=== PATIENT | female | born 1955 | race Caucasian/White ===

== ENCOUNTER 2018-02-25 11:39 | Inpatient (IN) | payer OTHER ==
[2018-02-25] MEDS ORDERED: morphine CARPU-JECT 4 MG/1 ML DISP.SYRIN IVPUSH ONE ×3 (12:01→16:52)
--- NOTE | 2018-02-25 12:13 | PDOC ---
History of Present Illness - History of Present Illness Initial Comments: Patient is a 62 F, with PMHx of anxiety, HLD, hypothyroidism, breast cancer (17 years ago) s/p right lumpectomy, osteoporosis, hysterectomy, Kyphoplasty T9-T10 fracture ( 2 weeks ago), who presents with back pain. Patient states that she has always had intermittent back pain, which exacerbated after she lifted her granddaughter one day. She states that 2 weeks ago she had Kyphoplasty on T9 and T10 fractures. She normally ambulates with a walker but this morning she was unable to get out of bed due to her back pain. She is scheduled for an MRI on Tuesday but she was old to come to the ED if she experiences severe pain. She sees a pain management doctor who has given her injections. She denies fever, chills, nausea, vomiting, Surgical Hx: Kyphoplasty ( 2 weeks ago) breast cancer (17 years ago) s/p right lumpectomy, hysterectomy Pain Management: Laz Win [phone] PCP: Dr. Gonsales ([place]) 02/25/18 12:35 <Roxi Aquino - Last Filed: 02/25/18 16:55> - General History Source: Patient, Family Exam Limitations: No Limitations <Harvinder Condon - Last Filed: 02/25/18 18:08> - General Chief Complaint: Back Pain Stated Complaint: BACK PAIN Time Seen by Provider: 02/25/18 11:43 Past History <Roxi Aquino - Last Filed: 02/25/18 16:55> <Harvinder Condon - Last Filed: 02/25/18 18:08> - Past Medical History Allergies/Adverse Reactions: Allergies Allergy/AdvReac Type Severity Reaction Status Date / Time fluconazole [From Diflucan] Allergy Verified 02/25/18 12:45 prochlorperazine Allergy Verified 02/25/18 12:45 [From Compazine] Home Medications: Ambulatory Orders Bupropion HCl [Wellbutrin Sr] 150 mg PO DAILY 02/25/18 Cyclobenzaprine HCl [Flexeril 10 mg] 10 mg PO BID PRN 02/25/18 Lorazepam [Ativan] 1 mg PO TID 02/25/18 Rosuvastatin Calcium [Crestor] 5 mg PO HS 02/25/18 Thyroid,Pork [[place] Thyroid] 30 mg PO DAILY 02/25/18 Tramadol HCl 50 mg PO PRN PRN 02/25/18 Review of Systems - Review of Systems Comments:: GENERAL/CONSTITUTIONAL: No fever or chills. No weakness. HEAD, EYES, EARS, NOSE AND THROAT: No change in vision. No ear pain or discharge. No sore throat. CARDIOVASCULAR: No chest pain or shortness of breath. RESPIRATORY: No cough, wheezing, or hemoptysis. GASTROINTESTINAL: No nausea, vomiting, diarrhea or constipation. GENITOURINARY: No dysuria, frequency, or change in urination. MUSCULOSKELETAL: + right lower back pain. No neck pain. SKIN: No rash NEUROLOGIC: No headache, vertigo, loss of consciousness, or change in strength/ sensation. ENDOCRINE: No increased thirst. No abnormal weight change. HEMATOLOGIC/LYMPHATIC: No anemia, easy bleeding, or history of blood clots. ALLERGIC/IMMUNOLOGIC: No hives or skin allergy. <Roxi Aquino - Last Filed: 02/25/18 16:55> Heart Score/ECG Review #1 ECG reviewed & interpreted by me at: 13:00 02/25/18 16:19 NSR 100, nonspecific T wave abnormality, no MARY KAY/STD, QTC 464 msec <Harvinder Condon - Last Filed: 02/25/18 18:08> ED Treatment Course - LABORATORY CBC & Chemistry Diagram: 02/25/18 12:22 02/25/18 11:59 - Additional Consults Time Called: 16:55 (Left a message for Dr. Garcia (pain management) ) <Roxi Aquino - Last Filed: 02/25/18 16:55> - LABORATORY CBC & Chemistry Diagram: 02/25/18 12:22 02/25/18 11:59 - RADIOLOGY Radiology Studies Ordered: Category Date Time Status LUMBAR SPINE CT W/O CONTRAST [CT] Stat CT Scan 02/25/18 11:[address] W/O CONTRAST [CT] Stat CT Scan 02/25/18 11:59 Ordered <Harvinder Condon - Last Filed: 02/25/18 18:08> Medical Decision Making - Medical Decision Making 02/25/18 12:21 A portion of this note was documented by scribe services under my direction. I have reviewed the details of the note, within reason, and agree with the documentation with the following case summary and management plan written by me. Patient treated in the ED. Nursing notes are reviewed and incorporated into the medical decision-making. Vital signs reviewed. Peripheral IV access obtained by the nurse, laboratory studies are drawn and sent, reviewed and interpreted by myself. 62-year-old female with history of hyperlipidemia, hypothyroidism presents with back pain. Approximately 2 weeks ago, the patient had a kyphoplasty performed for levels reportedly T9-T10. She subsequently was discharged and reportedly with no competitions. Has been performing physical therapy with the assistance of walker. Does not recall any increased physical exertion or injury, this morning woke up with severe lower back pain. Denies any urinary or bowel incontinence or retention. Denies any numbness or weakness in the lower extremity. States that she's been unable to get up secondary to pain. Came in by EMS for evaluation. Denies fevers, chills. Kyphoplasty was performed by Dr. Garcia. We'll obtain a CAT scan of the spine including the thoracic and lumbar region to evaluate for postoperative changes. We'll and give pain control and consult the patient's surgeon in regards for further disposition. 02/25/18 17:41 CT scan shows T12 vertebral body compression fracture which is age indeterminate , prior T10, T11 kyphoplasty, large posterior disc osteophyte complex at T11- T12 causing mild to moderate spinal stenosis. CBC, BMP 02/25/18 12:22 02/25/18 11:59 CMP Sodium 141 mmol/L (136-145) 02/25/18 11:59 Potassium 3.6 mmol/L (3.5-5.1) 02/25/18 11:59 Chloride 107 mmol/L (98-107) 02/25/18 11:59 Carbon Dioxide 28 mmol/L (21-32) 02/25/18 11:59 Anion Gap 6 (8-16) L 02/25/18 11:59 BUN 10 mg/dL (7-18) 02/25/18 11:59 Creatinine 0.6 mg/dL (0.55-1.02) 02/25/18 11:59 Creat Clearance w eGFR > 60 (>60) 02/25/18 11:59 Random Glucose 72 mg/dL (74-106) L 02/25/18 11:59 Calcium 8.6 mg/dL (8.5-10.1) 02/25/18 11:59 Total Bilirubin 0.7 mg/dL (0.2-1.0) 02/25/18 11:59 AST 25 U/L (15-37) 02/25/18 11:59 ALT 35 U/L (12-78) 02/25/18 11:59 Alkaline Phosphatase 224 U/L (45-117) H 02/25/18 11:59 Total Protein 6.4 g/dl (6.4-8.2) 02/25/18 11:59 Albumin 3.3 g/dl (3.4-5.0) L 02/25/18 11:59 02/25/18 18:07 Case discussed with [facility] hospitalist. Admit to med/surg obs. Case discussed in detail with admitting physician including history, physical exam and ancillary studies. Admitting physician has assumed care for the patient, will follow all pending diagnostics and will complete the evaluation and treatment. <Harvinder Condon - Last Filed: 02/25/18 18:08> *DC/Admit/Observation/Transfer <Roxi Aquino - Last Filed: 02/25/18 16:55> - Discharge Dispostion Decision to Admit order: Yes <Harvinder Condon - Last Filed: 02/25/18 18:08> Diagnosis at time of Disposition: Back pain Qualifiers: Back pain location: thoracic back pain Chronicity: unspecified Back pain laterality: unspecified Qualified Code(s): M54.6 - Pain in thoracic spine - Discharge Dispostion Condition at time of disposition: Stable
[2018-02-25] MEDS ORDERED: morphine SULFATE 4 MG/ML VIAL ONE ×3 (12:19→16:54)
[2018-02-25 12:48] LABS: BASO % 0.5 % (0-2.0); EOS % 0.9 % (0-4.5); HEMATOCRIT 40.1 % (32.4-45.2); HEMOGLOBIN 13.4 GM/dL (10.7-15.3); LYMPH % 11.7 % (8-40); MCH 31.8 pg (25.7-33.7); MCHC 33.5 g/dl (32.0-36.0); MEAN CELL VOLUME 95.2 fl (80-96); MEAN PLT VOLUME 6.7 fl (7.5-11.1); MONO % 9.3 % (3.8-10.2); NEUT % 77.6 % (42.8-82.8); PLATELET COUNT 170 K/MM3 (134-434); RBC 4.21 M/mm3 (3.60-5.2); RDW 17.1 % (11.6-15.6); WHITE BLOOD COUNT 7.9 K/mm3 (4.0-10.0)
[2018-02-25 12:48] LABS: URINE APPEARANCE SLCLOUDY; URINE BILIRUBIN NEGATIVE (<2.0 mg/dL); URINE COLOR YELLOW; URINE GLUCOSE (UA) NEGATIVE (NEGATIVE); URINE KETONE NEGATIVE (NEGATIVE); URINE LEUK ESTERASE NEGATIVE (NEGATIVE); URINE NITRITE NEGATIVE (NEGATIVE); URINE PROTEIN NEGATIVE (NEGATIVE)
[2018-02-25 13:04] LABS: ALBUMIN 3.3 g/dl (3.4-5.0); ANION GAP 6 (8-16); BLOOD UREA NITROGEN 10 mg/dL (7-18); CALCIUM 8.6 mg/dL (8.5-10.1); CHLORIDE 107 mmol/L (98-107); CO2 28 mmol/L (21-32); CREATININE 0.6 mg/dL (0.55-1.02); GLUCOSE,RANDOM 72 mg/dL (74-106); POTASSIUM 3.6 mmol/L (3.5-5.1); SGOT/AST 25 U/L (15-37); SGPT/ALT 35 U/L (12-78); SODIUM 141 mmol/L (136-145)
[2018-02-25 13:06] LABS: ALK PHOS 224 U/L (45-117); BILIRUBIN,TOTAL 0.7 mg/dL (0.2-1.0); TOT PROT 6.4 g/dl (6.4-8.2)
[2018-02-25 13:17] LABS: EPI CELLS RARE /HPF (FEW); URINE BACTERIA RARE /hpf (NONE SEEN); URINE MUCUS RARE
[2018-02-25 13:17] LABS: INR 1.1 (0.82-1.09); PROTHROMBIN TIME (PATIENT) 12.4 SEC (9.7-13.0)
[2018-02-25 13:20] LABS: ACTIVATED PTT 29.3 SECONDS (25.2-36.5)
--- NOTE | 2018-02-25 17:44 | EKG ---
Test Reason : Blood Pressure : / mmHG Vent. Rate : 100 BPM Atrial Rate : 100 BPM P-R Int : 136 ms QRS Dur : 086 ms QT Int : 360 ms P-R-T Axes : 049 -04 019 degrees QTc Int : 464 ms NORMAL SINUS RHYTHM NONSPECIFIC T WAVE ABNORMALITY ABNORMAL ECG WHEN COMPARED WITH ECG OF 04-OCT-2008 09:39, NO SIGNIFICANT CHANGE WAS FOUND Confirmed by RUBIO MONTES MD ([id number]) on 02/25/2018 5:43:56 PM Referred By: Confirmed By:RUBIO MONTES MD
[2018-02-25] MEDS ORDERED: DEXTROSE 5%-NORMAL SALINE 1,000 ML IV SCH (17:45)
[2018-02-25] MEDS ORDERED: LORazepam 2 MG/ML SDV VIAL ONE (18:30)
--- NOTE | 2018-02-25 18:54 | HP ---
Admitting History and Physical - Admission Chief Complaint: intractable back pain History of Present Illness: This is a 62 year old female is with pmhx r breast ca s/p lumpectomy,chemo radiation 18 years ago, 2 years ago stopped boniva and prior to that completed [address] Naidu who she sees [id number], anxiety, hypothyroid , OA presented to the ED with intractable back pain. 2 weeks ago pt underwent kyphoplasty d/t x3 spinal fx with Dr. Vogelc was feeling well until this week tuesday she started to have increased pain with movement and ambulation. Today however, she was unable to get out of bed. Pt denies decreased sensation to lower ext, incontinence with bowel or bladder, chest pain, sob, fever, chills. History Source: Patient Limitations to Obtaining History: No Limitations - Past Medical History Heme/Onc: Yes: Cancer (r breast ca 18 year ago s/p lumpectomy chemo/radiation) Psych: Yes: Anxiety, Depression Endocrine: Yes: Hypothyroidism - Past Surgical History Past Surgical History: Yes: Arthrosocopy (r shoulder), Hysterectomy - Smoking History Smoking history: Never smoked Have you smoked in the past 12 months: No - Alcohol/Substance Use Hx Alcohol Use: No - Social History Usual Living Arrangement: Yes: With Spouse ADL: Independent Home Medications - Allergies Allergies/Adverse Reactions: Allergies Allergy/AdvReac Type Severity Reaction Status Date / Time fluconazole [From Diflucan] Allergy Verified 02/25/18 12:45 prochlorperazine Allergy Verified 02/25/18 12:45 [From Compazine] - Home Medications Home Medications: Ambulatory Orders Bupropion HCl [Wellbutrin Sr] 150 mg PO DAILY 02/25/18 Cyclobenzaprine HCl [Flexeril 10 mg] 10 mg PO BID PRN 02/25/18 Lorazepam [Ativan] 1 mg PO TID 02/25/18 Rosuvastatin Calcium [Crestor] 5 mg PO HS 02/25/18 Thyroid,Pork [[place] Thyroid] 30 mg PO DAILY 02/25/18 Tramadol HCl 50 mg PO PRN PRN 02/25/18 Review of Systems - Review of Systems Constitutional: reports: Loss of Appetite Eyes: reports: No Symptoms HENT: reports: No Symptoms Neck: reports: No Symptoms Cardiovascular: reports: No Symptoms Respiratory: reports: No Symptoms Gastrointestinal: reports: No Symptoms Genitourinary: reports: No Symptoms Musculoskeletal: reports: Muscle Pain Integumentary: reports: No Symptoms Neurological: reports: No Symptoms Endocrine: reports: No Symptoms Hematology/Lymphatic: reports: No Symptoms Psychiatric: reports: No Symptoms Physical Examination Vital Signs: Vital Signs Temperature 98.0 F 02/25/18 11:39 Pulse Rate 96 H 02/25/18 11:39 Respiratory Rate 16 02/25/18 11:39 Blood Pressure 116/81 02/25/18 11:39 O2 Sat by Pulse Oximetry (%) 98 02/25/18 11:39 Constitutional: Yes: No Distress Eyes: Yes: Conjunctiva Clear HENT: Yes: Atraumatic Neck: Yes: Supple Cardiovascular: Yes: Regular Rate and Rhythm, S1, S2 Respiratory: Yes: Regular, CTA Bilaterally Gastrointestinal: Yes: Normal Bowel Sounds, Soft Renal/: Yes: Dias Present Musculoskeletal: Yes: Back Pain (low back pain, sciatica pain to palpation and movement) Extremities: Yes: WNL Edema: No Peripheral Pulses WNL: Yes Integumentary: Yes: WNL Neurological: Yes: Alert, Oriented, Cran Nerves II-XII Intact Psychiatric: Yes: Alert, Oriented Labs: CBC, BMP 02/25/18 12:22 02/25/18 11:59 Imaging - Results Cat Scan: Report Reviewed Problem List - Problems (1) Back pain Code(s): M54.9 - DORSALGIA, UNSPECIFIED Qualifiers: Back pain location: thoracic back pain Chronicity: unspecified Back pain laterality: unspecified Qualified Code(s): M54.6 - Pain in thoracic spine Assessment/Plan Assessment: 62 year old female admitted with intractable back pain Plan: 1. Intractable back pain - Continue morphine, IV tylenol - Dr. Win to see pt tomorrow 2. Hypothyroid - Cont amour thyroid 30 mg daily 3. Anxiety - Ativan 1mg daily - Wellbutrin 150mg daily 4. DVT - SCDs Visit type - Emergency Visit Emergency Visit: Yes ED Registration Date: 02/25/18 Care time: The patient presented to the Emergency Department on the above date and was hospitalized for further evaluation of their emergent condition. - New Patient This patient is new to me today: Yes Date on this admission: 02/25/18 - Critical Care Critical Care patient: No Hospitalist Screening - Colonoscopy Questionnaire Colonoscopy Questionnaire: Colonoscopy Questionnaire - Patient: 50 - 75 years old and never had a screening colonoscopy: Unknown History of colon or rectal polyps, or CA: Unknown History of IBD, Crohn's disease or UC: Unknown History of abdominal radiation therapy as a child: Unknown - Relative: 1 with colon or rectal CA, or polyps at age 60 or younger: Unknown Colon or rectal CA diagnosed at age 45 or younger: Unknown Multiple relatives with colon or rectal CA: Unknown - Outcome: Screening Result: Negative Screen
[2018-02-25] MEDS ORDERED: morphine CARPU-JECT 2 MG/1 ML DISP.SYRIN IVPUSH PRN (19:09)
[2018-02-25] MEDS ORDERED: CYCLOBENZAPRINE HCL 10 MG TABLET (FP) PO PRN (19:15)
[2018-02-25 20:47] VITALS: BMI 28.1
[2018-02-25] MEDS: DEXTROSE 5%-NORMAL SALINE 1,000 ML IV SCH (21:10)
[2018-02-25] MEDS: ACETAMINOPHEN 1000 MG/100 ML VIAL (NON FORMULARY) IVPB SCH (21:11)
[2018-02-26] MEDS: ACETAMINOPHEN 1000 MG/100 ML VIAL (NON FORMULARY) IVPB SCH ×3 (01:59→13:48)
[2018-02-26] MEDS: DEXTROSE 5%-NORMAL SALINE 1,000 ML IV SCH ×2 (03:00→23:12)
[2018-02-26] MEDS ORDERED: ACETAMINOPHEN/CAFFEINE/BUTALBITAL 1 TAB PO ONE (06:13)
[2018-02-26] MEDS: THYROID 30 MG TABLET PO SCH (07:47)
[2018-02-26 08:35] LABS: BASO % 0.5 % (0-2.0); EOS % 1.4 % (0-4.5); HEMATOCRIT 35.5 % (32.4-45.2); HEMOGLOBIN 12.1 GM/dL (10.7-15.3); LYMPH % 12.1 % (8-40); MCH 32.4 pg (25.7-33.7); MCHC 34.2 g/dl (32.0-36.0); MEAN CELL VOLUME 94.8 fl (80-96); MEAN PLT VOLUME 6.7 fl (7.5-11.1); PLATELET COUNT 156 K/MM3 (134-434); RBC 3.74 M/mm3 (3.60-5.2); RDW 16.8 % (11.6-15.6); WHITE BLOOD COUNT 7.1 K/mm3 (4.0-10.0)
[2018-02-26 09:06] LABS: ALBUMIN 2.7 g/dl (3.4-5.0); ALK PHOS 195 U/L (45-117); ANION GAP 6 (8-16); BILIRUBIN,TOTAL 0.7 mg/dL (0.2-1.0); BLOOD UREA NITROGEN 7 mg/dL (7-18); CALCIUM 7.8 mg/dL (8.5-10.1); CHLORIDE 111 mmol/L (98-107); CO2 27 mmol/L (21-32); CREATININE 0.6 mg/dL (0.55-1.02); GLUCOSE,RANDOM 107 mg/dL (74-106); MAGNESIUM 1.8 mg/dL (1.8-2.4); PHOSPHOROUS 3.7 mg/dL (2.5-4.9); POTASSIUM 3.4 mmol/L (3.5-5.1); SGOT/AST 16 U/L (15-37); SGPT/ALT 26 U/L (12-78); SODIUM 144 mmol/L (136-145); TOT PROT 5.4 g/dl (6.4-8.2)
[2018-02-26] MEDS ORDERED: PT OWN MED DRAWER 7, Y5N ONE (10:06)
[2018-02-26] MEDS: LORazepam 1 MG TABLET PO SCH (10:07)
[2018-02-26] MEDS: buPROPion HCL 75 MG TABLET PO SCH (11:08)
[2018-02-26] MEDS ORDERED: POTASSIUM CHLORIDE ORAL LIQUID 20 MEQ/15 ML PO ONE (12:02)
--- NOTE | 2018-02-26 12:03 | PN ---
Physical Exam: SUBJECTIVE: Patient seen and examined. Pain remains. Family at bedside. OBJECTIVE: Vital Signs Period Temp Pulse Resp BP Sys/Fitzpatrick Pulse Ox Last 24 Hr 97.9 F-98.5 F 88-115 16-16 108-111/60-70 99-99 PE Neuro: alert, awake, cn 2-12intact Pulm: CTA anteriorly CV: s1 s2 rrr Abd: s nt nd +bs MSK: low back tenderness, no le edema Laboratory Results - last 24 hr 02/25/18 02/25/18 02/25/18 11:59 11:59 12:22 WBC 7.9 RBC 4.21 Hgb 13.4 Hct 40.1 MCV 95.2 MCH 31.8 MCHC 33.5 RDW 17.1 H Plt Count 170 MPV 6.7 L Absolute Neuts (auto) 6.1 Neutrophils % 77.6 Lymphocytes % 11.7 Monocytes % 9.3 Eosinophils % 0.9 Basophils % 0.5 Nucleated RBC % 0 PT with INR 12.40 INR 1.10 PTT (Actin FS) 29.3 Sodium 141 Potassium 3.6 Chloride 107 Carbon Dioxide 28 Anion Gap 6 L BUN 10 Creatinine 0.6 Creat Clearance w eGFR > 60 Random Glucose 72 L Calcium 8.6 Phosphorus Magnesium Total Bilirubin 0.7 AST 25 ALT 35 Alkaline Phosphatase 224 H Total Protein 6.4 Albumin 3.3 L Urine Color Urine Appearance Urine pH Ur Specific [place] Urine Protein Urine Glucose (UA) Urine Ketones Urine Blood Urine Nitrite Urine Bilirubin Urine Urobilinogen Ur Leukocyte Esterase Urine WBC (Auto) Urine RBC (Auto) Ur Epithelial Cells Urine Bacteria Urine Mucus Blood Type Antibody Screen 02/25/18 02/25/18 02/26/18 12:22 12:31 07:45 WBC 7.1 RBC 3.74 Hgb 12.1 Hct 35.5 MCV 94.8 MCH 32.4 MCHC 34.2 RDW 16.8 H Plt Count 156 MPV 6.7 L Absolute Neuts (auto) 5.4 Neutrophils % 76.0 Lymphocytes % 12.1 Monocytes % 10.0 Eosinophils % 1.4 Basophils % 0.5 Nucleated RBC % 0 PT with INR INR PTT (Actin FS) Sodium Potassium Chloride Carbon Dioxide Anion Gap BUN Creatinine Creat Clearance w eGFR Random Glucose Calcium Phosphorus Magnesium Total Bilirubin AST ALT Alkaline Phosphatase Total Protein Albumin Urine Color Yellow Urine Appearance Slcloudy Urine pH 5.0 Ur Specific [place] 1.012 Urine Protein Negative Urine Glucose (UA) Negative Urine Ketones Negative Urine Blood 1+ H Urine Nitrite Negative Urine Bilirubin Negative Urine Urobilinogen 2.0 H Ur Leukocyte Esterase Negative Urine WBC (Auto) 4 Urine RBC (Auto) 6 Ur Epithelial Cells Rare Urine Bacteria Rare Urine Mucus Rare Blood Type A POSITIVE Antibody Screen Negative 02/26/18 07:45 WBC RBC Hgb Hct MCV MCH MCHC RDW Plt Count MPV Absolute Neuts (auto) Neutrophils % Lymphocytes % Monocytes % Eosinophils % Basophils % Nucleated RBC % PT with INR INR PTT (Actin FS) Sodium 144 Potassium 3.4 L Chloride 111 H Carbon Dioxide 27 Anion Gap 6 L BUN 7 Creatinine 0.6 Creat Clearance w eGFR > 60 Random Glucose 107 H Calcium 7.8 L Phosphorus 3.7 Magnesium 1.8 Total Bilirubin 0.7 AST 16 ALT 26 Alkaline Phosphatase 195 H Total Protein 5.4 L Albumin 2.7 L Urine Color Urine Appearance Urine pH Ur Specific [place] Urine Protein Urine Glucose (UA) Urine Ketones Urine Blood Urine Nitrite Urine Bilirubin Urine Urobilinogen Ur Leukocyte Esterase Urine WBC (Auto) Urine RBC (Auto) Ur Epithelial Cells Urine Bacteria Urine Mucus Blood Type Antibody Screen Active Medications Generic Name Dose Route Start Last Admin Trade Name Freq PRN Reason Stop Dose Admin Acetaminophen 1,000 mg 02/25/18 19:15 02/26/18 07:41 Ofirmev Injection - IVPB 02/26/18 13:16 Not Given Q6H TD Bupropion HCl 150 mg 02/26/18 10:00 02/26/18 11:08 Wellbutrin - PO 150 mg DAILY TD Administration Cyclobenzaprine HCl 10 mg 02/25/18 19:15 Flexeril - PO Q12H PRN MUSCLE SPASM Dextrose/Sodium Chloride 1,000 mls @ 100 mls/hr 02/25/18 19:11 02/26/18 03:00 D5-Ns - IV 100 mls/hr ASDIR TD Administration Lorazepam 1 mg 02/26/18 10:00 02/26/18 10:07 Ativan - PO 1 mg DAILY TD Administration Morphine Sulfate 4 mg 02/25/18 19:12 Morphine Sulfate IVPUSH Q4H PRN PAIN LEVEL 1-5 Potassium Chloride 20 meq 02/26/18 12:02 Potassium Chloride Oral Liquid PO 02/26/18 12:03 ONCE ONE Thyroid 30 mg 02/26/18 07:00 02/26/18 07:47 [place] Thyroid - PO 30 mg 0700 TD Administration Assessment: 62 year old female admitted with intractable back pain Plan: 1. Intractable back pain - Continue morphine, IV tylenol - Lumbar/spinal MRI per Dr. Win - Pain mgmt 2. Hypothyroid - Cont amour thyroid 30 mg daily 3. Anxiety - Ativan 1mg daily - Wellbutrin 150mg daily 4. Hypokalemia - Replete 40meq x1 5. DVT - SCDs Problem List - Problems (1) Back pain Code(s): M54.9 - DORSALGIA, UNSPECIFIED Qualifiers: Back pain location: thoracic back pain Chronicity: unspecified Back pain laterality: unspecified Qualified Code(s): M54.6 - Pain in thoracic spine Visit type - Emergency Visit Emergency Visit: Yes ED Registration Date: 02/25/18 Care time: The patient presented to the Emergency Department on the above date and was hospitalized for further evaluation of their emergent condition. - New Patient This patient is new to me today: No - Critical Care Critical Care patient: No
[2018-02-26] MEDS: CYCLOBENZAPRINE HCL 10 MG TABLET (FP) PO SCH ×2 (12:35→21:09)
[2018-02-26] MEDS: guaiFENesin 200 MG/10 ML 10 ML UNIT-DOSE CUPS PO PRN (16:55)
[2018-02-26] MEDS: traMADol HCL 50 MG TABLET PO PRN (21:16)
[2018-02-26] MEDS: morphine SULFATE 4 MG/ML VIAL IVPUSH PRN (23:18)
[2018-02-27] MEDS: DEXTROSE 5%-NORMAL SALINE 1,000 ML IV SCH (02:55)
[2018-02-27] MEDS ORDERED: PT OWN MED DRAWER 7, Y5N ONE (06:02)
[2018-02-27] MEDS: THYROID 30 MG TABLET PO SCH (06:08)
[2018-02-27 08:37] LABS: CHLORIDE 111 mmol/L (98-107); POTASSIUM 3.5 mmol/L (3.5-5.1); SODIUM 145 mmol/L (136-145)
[2018-02-27 08:51] LABS: ANION GAP 10 (8-16); BLOOD UREA NITROGEN 6 mg/dL (7-18); CO2 24 mmol/L (21-32); CREATININE 0.6 mg/dL (0.55-1.02); GLUCOSE,RANDOM 94 mg/dL (74-106)
[2018-02-27] MEDS: CYCLOBENZAPRINE HCL 10 MG TABLET (FP) PO SCH ×2 (10:08→22:00)
[2018-02-27] MEDS: LORazepam 1 MG TABLET PO SCH (10:08)
[2018-02-27] MEDS: buPROPion HCL 75 MG TABLET PO SCH (10:09)
[2018-02-27] MEDS: morphine SULFATE 4 MG/ML VIAL IVPUSH PRN (10:09)
[2018-02-27] MEDS: guaiFENesin 200 MG/10 ML 10 ML UNIT-DOSE CUPS PO PRN ×2 (10:09→19:15)
--- NOTE | 2018-02-27 10:41 | PN ---
Physical Exam: SUBJECTIVE: Patient seen and examined. Reported cough by nurse staff community health. States she has not sat up oob she cant due to pain. OBJECTIVE: Vital Signs Period Temp Pulse Resp BP Sys/Fitzpatrick Pulse Ox Last 24 Hr 97.8 F-98.9 F 102-110 18-20 83-116/60-76 95-96 PE Neuro: alert, awake, cn 2-12intact HEENT: dry mm m Pulm: CTAB CV: s1 s2 rrr Abd: s nt nd +bs MSK: low back tenderness, no le edema Laboratory Results - last 24 hr 02/27/18 07:30 Sodium 145 Potassium 3.5 Chloride 111 H Carbon Dioxide 24 Anion Gap 10 BUN 6 L Creatinine 0.6 Creat Clearance w eGFR > 60 Random Glucose 94 Calcium 8.0 L Active Medications Generic Name Dose Route Start Last Admin Trade Name Freq PRN Reason Stop Dose Admin Bupropion HCl 150 mg 02/26/18 10:00 02/27/18 10:09 Wellbutrin - PO 150 mg DAILY TD Administration Cyclobenzaprine HCl 10 mg 02/26/18 12:10 02/27/18 10:08 Flexeril - PO 10 mg BID TD Administration Guaifenesin 10 ml 02/26/18 16:50 02/27/18 10:09 Robitussin - PO 10 ml Q6H PRN Administration COUGH Dextrose/Sodium Chloride 1,000 mls @ 100 mls/hr 02/25/18 19:11 02/27/18 02:55 D5-Ns - IV 100 mls/hr ASDIR TD Administration Lorazepam 1 mg 02/26/18 10:00 02/27/18 10:08 Ativan - PO 1 mg DAILY TD Administration Morphine Sulfate 4 mg 02/25/18 19:12 02/27/18 10:09 Morphine Sulfate IVPUSH 4 mg Q4H PRN Administration PAIN LEVEL 1-5 Thyroid 30 mg 02/26/18 07:00 02/27/18 06:08 [place] Thyroid - PO 30 mg 0700 TD Administration Tramadol HCl 50 mg 02/26/18 12:08 02/26/18 21:16 Ultram - PO 50 mg Q6H PRN Administration PAIN Assessment: 62 year old female admitted with intractable back pain Plan: 1. Intractable back pain - Continue ultram, flexeril - Pending Lumbar/spinal MRI per Dr. Win - Stop fluids 2. Hypothyroid - Cont amour thyroid 30 mg daily 3. Anxiety - Ativan 1mg daily - Wellbutrin 150mg daily 4. Hypokalemia - Resolved 5. DVT - SCDs Problem List - Problems (1) Back pain Code(s): M54.9 - DORSALGIA, UNSPECIFIED Qualifiers: Back pain location: thoracic back pain Chronicity: unspecified Back pain laterality: unspecified Qualified Code(s): M54.6 - Pain in thoracic spine Visit type - Emergency Visit Emergency Visit: Yes ED Registration Date: 02/25/18 Care time: The patient presented to the Emergency Department on the above date and was hospitalized for further evaluation of their emergent condition. - New Patient This patient is new to me today: No - Critical Care Critical Care patient: No
[2018-02-27] MEDS: ALBUTEROL SO4 0.083% IH SOL 2.5 MG/3 ML VIAL.NEB. NEB SCH ×3 (11:24→20:16)
[2018-02-27] MEDS ORDERED: ESTRADIOL VG SCH (11:30)
[2018-02-27] MEDS ORDERED: MORPHINE SULFATE 10 MG/1 ML *VIAL SQ PRN (11:33)
[2018-02-27] MEDS ORDERED: SUMAtriptan SUCCINATE 25 MG TABLET PO PRN (12:03)
[2018-02-27] MEDS: CALCIUM 500MG/VIT-D 200 UNITS COMBO TABLET (FP) PO SCH (12:55)
[2018-02-27] MEDS: MORPHINE SULFATE 2 MG/ML VIAL SQ PRN (19:15)
[2018-02-28] MEDS: MORPHINE SULFATE 2 MG/ML VIAL SQ PRN ×2 (00:36→10:00)
[2018-02-28] MEDS: traMADol HCL 50 MG TABLET PO PRN (00:37)
[2018-02-28] MEDS ORDERED: PT OWN MED DRAWER 7, Y5N ONE ×2 (06:03→08:51)
[2018-02-28] MEDS: THYROID 30 MG TABLET PO SCH (06:52)
[2018-02-28] MEDS: ALBUTEROL SO4 0.083% IH SOL 2.5 MG/3 ML VIAL.NEB. NEB SCH (08:35)
[2018-02-28] MEDS: CYCLOBENZAPRINE HCL 10 MG TABLET (FP) PO SCH ×2 (09:19→22:44)
[2018-02-28] MEDS: LORazepam 1 MG TABLET PO SCH ×2 (09:19→22:44)
[2018-02-28] MEDS: CALCIUM 500MG/VIT-D 200 UNITS COMBO TABLET (FP) PO SCH (09:19)
[2018-02-28] MEDS: guaiFENesin 200 MG/10 ML 10 ML UNIT-DOSE CUPS PO PRN ×2 (11:47→23:01)
[2018-02-28] MEDS ORDERED: SODIUM CHLORIDE 1,000 ML IV SCH (12:15)
[2018-02-28 13:07] LABS: BASO % 0.3 % (0-2.0); EOS % 0.1 % (0-4.5); HEMATOCRIT 40.4 % (32.4-45.2); HEMOGLOBIN 13.5 GM/dL (10.7-15.3); LYMPH % 4.8 % (8-40); MCH 31.5 pg (25.7-33.7); MCHC 33.4 g/dl (32.0-36.0); MEAN CELL VOLUME 94.3 fl (80-96); MEAN PLT VOLUME 6.9 fl (7.5-11.1); MONO % 4.2 % (3.8-10.2); NEUT % 90.6 % (42.8-82.8); PLATELET COUNT 180 K/MM3 (134-434); RBC 4.28 M/mm3 (3.60-5.2); RDW 16.7 % (11.6-15.6); WHITE BLOOD COUNT 11.9 K/mm3 (4.0-10.0)
[2018-02-28 13:33] LABS: ALBUMIN 2.8 g/dl (3.4-5.0); ALK PHOS 249 U/L (45-117); ANION GAP 10 (8-16); BILIRUBIN,TOTAL 0.6 mg/dL (0.2-1.0); BLOOD UREA NITROGEN 12 mg/dL (7-18); CALCIUM 8.4 mg/dL (8.5-10.1); CHLORIDE 107 mmol/L (98-107); CO2 26 mmol/L (21-32); CREATININE 0.5 mg/dL (0.55-1.02); GLUCOSE,RANDOM 127 mg/dL (74-106); MAGNESIUM 1.9 mg/dL (1.8-2.4); POTASSIUM 3.3 mmol/L (3.5-5.1); SGOT/AST 17 U/L (15-37); SGPT/ALT 28 U/L (12-78); SODIUM 143 mmol/L (136-145); TOT PROT 6.3 g/dl (6.4-8.2)
[2018-02-28] MEDS ORDERED: CEFTRIAXONE 1 GM in DEXTROSE 5%-WATER - 50 ML IVPB SCH (14:00)
[2018-02-28] MEDS ORDERED: POTASSIUM CHLORIDE 10 MEQ in SODIUM CHLORIDE 100 ML IVPB SCH (14:00)
[2018-02-28] MEDS ORDERED: DEXTROSE 5%-WATER - 50 ML IVPB ONE (14:38)
[2018-02-28] MEDS ORDERED: cefTRIAXone SODIUM 1 GM VIAL ONE (14:38)
--- NOTE | 2018-02-28 14:52 | EKG ---
Test Reason : Blood Pressure : / mmHG Vent. Rate : 120 BPM Atrial Rate : 120 BPM P-R Int : 138 ms QRS Dur : 082 ms QT Int : 306 ms P-R-T Axes : 046 -16 024 degrees QTc Int : 432 ms SINUS TACHYCARDIA NONSPECIFIC T WAVE ABNORMALITY ABNORMAL ECG WHEN COMPARED WITH ECG OF 25-FEB-2018 12:55, NO SIGNIFICANT CHANGE WAS FOUND Confirmed by MD Radha, Chele ([id number]) on 02/28/2018 2:51:53 PM Referred By: Edwige MALHOTRA Confirmed By:Chele Garcia MD
--- NOTE | 2018-02-28 15:36 | PN ---
Physical Exam: SUBJECTIVE: Patient seen and examined. Denies any chest pain or shortness of breath. Denies alcohol use, drug use or any other substance abuse. Mild hand tremors noted during exam. OBJECTIVE: Patient with mild hand tremors and tachycardia EKG shows ST 120s, patient denies w/drawal from etoh or substance abuse On Ativan 1mg daily currently K. 3.3, repletes, UTI+, started on ceftriaxone Vital Signs Period Temp Pulse Resp BP Sys/Fitzpatrick Pulse Ox Last 24 Hr 98.5 F-98.9 F 107-120 20-20 99-108/69-72 GENERAL: The patient is awake, alert, and fully oriented, in no acute distress. HEAD: Normal with no signs of trauma. EYES: PERRL, extraocular movements intact, sclera anicteric, conjunctiva clear. No ptosis. ENT: Ears normal, nares patent, oropharynx clear without exudates, moist mucous membranes. NECK: Trachea midline, full range of motion, supple. LUNGS: Breath sounds equal, clear to auscultation bilaterally, no wheezes HEART: sinus tachycardia noted by auscultation, confirmed with EKG ABDOMEN: Soft, nontender, nondistended, normoactive bowel sounds, no guarding, no rebound, no hepatosplenomegaly, no masses. EXTREMITIES: no edema. NEUROLOGICAL: Normal speech, gait not observed. PSYCH: Normal mood, normal affect. SKIN: Warm, dry, normal turgor, no rashes or lesions noted Laboratory Results - last 24 hr 02/28/18 02/28/18 12:39 12:39 WBC 11.9 H D RBC 4.28 Hgb 13.5 D Hct 40.4 MCV 94.3 MCH 31.5 MCHC 33.4 RDW 16.7 H Plt Count 180 MPV 6.9 L Absolute Neuts (auto) 10.8 Neutrophils % 90.6 H Lymphocytes % 4.8 L D Monocytes % 4.2 Eosinophils % 0.1 D Basophils % 0.3 Nucleated RBC % 0 Sodium 143 Potassium 3.3 L Chloride 107 Carbon Dioxide 26 Anion Gap 10 BUN 12 Creatinine 0.5 L Creat Clearance w eGFR > 60 Random Glucose 127 H Calcium 8.4 L Magnesium 1.9 Total Bilirubin 0.6 AST 17 ALT 28 Alkaline Phosphatase 249 H Total Protein 6.3 L Albumin 2.8 L Active Medications Generic Name Dose Route Start Last Admin Trade Name Freq PRN Reason Stop Dose Admin Bupropion HCl 150 mg 02/28/18 04:52 02/28/18 09:19 Wellbutrin Xl - PO 150 mg DAILY TD Administration Calcium Carbonate/Cholecalciferol 1 tab 02/27/18 12:00 02/28/18 09:19 Os-Derrick 500+D - PO 1 tab DAILY TD Administration Cyclobenzaprine HCl 10 mg 02/26/18 12:10 02/28/18 09:19 Flexeril - PO 10 mg BID TD Administration Guaifenesin 10 ml 02/26/18 16:50 02/28/18 11:47 Robitussin - PO 10 ml Q6H PRN Administration COUGH Sodium Chloride 1,000 mls @ 100 mls/hr 02/28/18 12:15 02/28/18 13:00 Normal Saline - IV 100 mls/hr ASDIR TD Administration Ceftriaxone Sodium 1 gm/ 50 mls @ 100 mls/hr 02/28/18 14:00 02/28/18 14:43 Dextrose IVPB 100 mls/hr DAILY TD Administration Protocol Lorazepam 1 mg 02/26/18 10:00 02/28/18 09:19 Ativan - PO 1 mg DAILY TD Administration Morphine Sulfate 2 mg 02/27/18 14:43 02/28/18 10:00 Morphine Sulfate SQ 2 mg Q6H PRN Administration PAIN LEVEL 4 - 6 Sumatriptan Succinate 25 mg 02/27/18 12:03 Imitrex - PO DAILY PRN HEADACHE Thyroid 30 mg 02/26/18 07:00 02/28/18 06:52 [place] Thyroid - PO 30 mg 0700 TD Administration Tramadol HCl 50 mg 02/26/18 12:08 02/28/18 00:37 Ultram - PO 50 mg Q6H PRN Administration PAIN ASSESSMENT/PLAN: Patient is a 62 year old female with a significant past medical history of anxiety, hyperlipidemia, hypothyroidism, breast cancer (17 years ago) s/p right lumpectomy, osteoporosis, hysterectomy, kyphoplasty T9-T10 fracture ( 2 weeks ago), who presents to the ED with back pain. She states that 2 weeks ago she had Kyphoplasty on T9 and T10 fractures. She normally ambulates with a walker but unable to get out of bed due to her back pain. Imaging: MRI thoracic spine w/o contrast: T10 mild recent compression deformity of the superior endplate with bone marrow edema. Posterior cortex is intact. No evidence of retropulsion. Cardiology: Tachycardia EKG with ST @ 120s, has been tachycardic since admission. Tachycardia likely secondary to acute back pain, hypokalemia and UTI. Patient also has history of anxiety. Currently on pain regimen with morphine. Potassium repleted, started on Ceftriaxone for UTI, Denies chest pain, denies shortness of breath. Denies any etoh or substance abuse. Repeat labs in a.m., TSH ordered. HLD, chronic Lipid panel in am. Back Pain For surgical repair today with Dr. Win. Monitor pain Psyche On Ativan for anxiety disorder. Mildly anxious on exam. Endocrine: Hypothyroidism, TSH in a.m. On Mobile FEN NS @ 100cc/hr monitor electrolytes NPO until after back surgery Prophy: SCDs Incentive spirometer Visit type - Emergency Visit Emergency Visit: Yes ED Registration Date: 02/28/18 Care time: The patient presented to the Emergency Department on the above date and was hospitalized for further evaluation of their emergent condition. - New Patient This patient is new to me today: Yes Date on this admission: 02/28/18 - Critical Care Critical Care patient: No - Discharge Referral Referred to [facility] Med P.C.: No
[2018-02-28] MEDS ORDERED: ONDANSETRON 4 MG/2 ML VIAL IVPUSH PRN ×2 (17:47→20:49)
[2018-02-28] MEDS ORDERED: LIDOCAINE HCL 1%, 10 MG/ML (20ML VIAL) ONE (18:52)
--- NOTE | 2018-02-28 18:59 | PN ---
Progress Note (short form) - Note Progress Note: Patient seen and examined. at bedside. MRIs reviewed. Multiple acute to subacute compression fractures seen. Pain is severe 10/10 when sitting orstanding. Patient cannot stand or walk due to pain. PE: severe bilateral lower thoracic upper lumbar pain A: Acute compression fractures- t8 t11 t12 kyphoplasties planned P I spoke to the patient and at length about the risks associated of not treating and treating these fractures. The patient understands that there are risks of bleeding, infection, cement extravasation, worsening of retropulsion which may cause neurological deficits requiring further surgery. THe patient would like to proceed with the procedure to help alleviate the pain. The patient was advised to see an coal wheeler for her osteoporosis.
[2018-02-28] MEDS ORDERED: MIDAZOLAM HCL 2 MG/2 ML SINGLE DOSE VIAL ONE (19:25)
[2018-02-28] MEDS ORDERED: PROPOFOL 20 ML ONE ×2 (19:25)
[2018-02-28] MEDS ORDERED: BUPIVACAINE HCL/PF 0.5% (5MG/ML) 10 ML VIAL ONE (19:33)
--- NOTE | 2018-02-28 20:38 | PN ---
Progress Note (short form) - Note Progress Note: Status post kyphoplast T8 t11 and t12 no complications status post biopsy
[2018-02-28] MEDS ORDERED: BUPIVACAINE HCL/PF 0.5% (5MG/ML) 10 ML VIAL IJ ONE (20:45)
[2018-02-28] MEDS ORDERED: LIDOCAINE HCL 1%, 10 MG/ML (20ML VIAL) INF ONE (20:45)
[2018-02-28] MEDS ORDERED: SUMAtriptan SUCCINATE 25 MG TABLET PO PRN (20:49)
[2018-02-28] MEDS ORDERED: traMADol HCL 50 MG TABLET PO PRN (20:49)
[2018-02-28] MEDS ORDERED: ACETAMINOPHEN 1000 MG/100 ML VIAL (NON FORMULARY) IVPB ONE (21:00)
[2018-02-28] MEDS: SODIUM CHLORIDE 1,000 ML IV SCH (21:15)
[2018-02-28] MEDS ORDERED: ROSUVASTATIN CA 5 MG TABLET (FP) PO SCH (22:00)
[2018-02-28] MEDS ORDERED: LORazepam 1 MG TABLET PO SCH (22:00)
[2018-02-28] MEDS ORDERED: PATIENT'S OWN MEDICATION (NON-FORMULARY) (Cyclosporine [Restasis] 1 DROP) OU SCH ×2 (22:00)
[2018-02-28] MEDS: ROSUVASTATIN CA 5 MG TABLET (FP) PO SCH (22:44)
[2018-03-01] MEDS ORDERED: LORazepam 0.5 MG TABLET ONE (06:25)
[2018-03-01] MEDS ORDERED: PT OWN MED DRAWER 7, Y5N ONE (06:25)
[2018-03-01] MEDS: THYROID 30 MG TABLET PO SCH (06:49)
[2018-03-01] MEDS: LORazepam 1 MG TABLET PO SCH ×3 (06:51→21:22)
--- NOTE | 2018-03-01 07:30 | OPR ---
DATE: 02/28/2018 OPERATIVE REPORT Surgeon: Laz Win MD Preoperative Diagnosis: 1. Acute Pathologic Compression Fracture at T8, T11 and T12 2. Osteoporosis Postoperative Diagnosis: Same Anesthesia: MAC sedation with IV propofol Procedure: 1.KYPHON Balloon Kyphoplasty at T8 T11 T12 level 2.Insertion of KYPHON bone cement under low pressure at T8 T11 and T12 Biopsy waas performed of the vertebral body Complications: None Blood Loss: Minimal Assessment: Mrs Hernandez is a 62-year-old who has had severe back pain that began approximately 12 weeks ago and is debilitating. The patient has been unresponsive to nonoperative treatment modalities including bed rest and analgesics. Radiographic imaging including MRI thoracic spine confirms acute compression fracture of the t8 t11 and t12 vertebral body-(the numbering is different than previous kyphoplasty as there was no lumbar spine mri performed previously) The procedure was explained to the patient. The risks and benefits were explained including but not limited to bleeding, infection, nerve injury, headaches, and worsening of pain. All questions have been answered and informed consent granted. PROCEDURE: The patient was brought to the operating room and MAC sedation was performed. The patient was positioned prone on the OR table. The back was prepped and draped. The image intensifier (C-arm) was brought into position and the right T11 pedicle was identified and marked with a skin marker. In view of the collapse, a transpedicular approach to the vertebral body was appropriate. A spinal 22Gauge needle was inserted to the pedicle of the vertebral body. After negative aspiration, 8cc 0.25% Marcaine was injected at each pedicle. A stab incision was made 1cm lateral and superior to pedicle. A 10--gauge trochar was advanced through the pedicle to the junction of the pedicle and vertebral body. Positioning was confirmed on the AP and lateral plane. Once the trochar was at the junction of the pedicle and the vertebral body, a lateral image was taken to insure that the cannula was positioned approximately 1cm past the vertebral body wall.. A similar technique was performed at the left side of the t12 vertebral body.. A similar technique was performed at the left side of the t8 vertebral body.. A biopsy of the vertebral body was taken through the cannula.. After completing the entry into the vertebral body, a 15 mm inflatable bone tamp was inserted through the cannula and advanced under fluoroscopic guidance into the vertebral body near the anterior cortex. The radiopaque marker bands on the one tamp were identified using AP and lateral images. Once the bone tamp was in position, it was inflated to 0.5 cc and 50 psi. Expansion of the bone tamps was done sequentially in increments of 0.25 to 0.5 cc of contrast, with careful attention being paid to the inflation pressures and balloon position. The inflation was monitored with AP and lateral imaging. The final balloon volume was 2 cc. There was no breach of the lateral wall or anterior cortex of the vertebral body. Direct reduction of the fracture was achieved, end plate movement was noted and approximately 5 mm of height restorationism was achieved. Under fluoroscopic imaging, and the use of the bone void fillers, internal fixation was achieved through a low-pressure injection of KYPHON bone cement. The cavity was filled with a total volume of 2 cc.. A similar technique was performed at the left side of the t12 vertebral body. The final balloon volume was 2cc. There was no breach of the lateral wall or anterior cortex of the vertebral body. Under fluoroscopic imaging, and the use of the bone void fillers, internal fixation was achieved through a low-pressure injection of KYPHON HV-R bone cement. The cavity was filled with a total volume of 2.5cc. Once the bone cement had hardened, the cannulas were then removed. There was some cement which centered around the posterior vertebral body, but NO cement into the spinal canal.. A similar technique was performed at the left side of the t8 vertebral body. The final balloon volume was 2cc. There was no breach of the lateral wall or anterior cortex of the vertebral body. Under fluoroscopic imaging, and the use of the bone void fillers, internal fixation was achieved through a low-pressure injection of KYPHON HV-R bone cement. The cavity was filled with a total volume of 2cc. Once the bone cement had hardened, the cannulas were then removed. There was some cement which centered around the posterior vertebral body, but NO cement into the spinal canal.. Once the bone cement had hardened, the cannulas were then removed. Throughout the procedure, AP and lateral imaging monitored positioning. Post-procedure, all incisions were closed with steristrips. The patient was kept in the prone position for approximately 30 minutes post cement injection. The patient was then turned supine, monitored briefly and returned to the recovery room. The patient was moving both lower extremities at this time. Throughout the procedure, there were no intraoperative complications. Estimated blood loss was minimal. A spine xray was performed post procedure which showed no cement extrusion. Laz Win M.D. Board Certified Bereavement Program Coordinator.
[2018-03-01 09:22] LABS: BASO % 0.1 % (0-2.0); EOS % 0.1 % (0-4.5); HEMATOCRIT 34.1 % (32.4-45.2); HEMOGLOBIN 11.6 GM/dL (10.7-15.3); LYMPH % 6.3 % (8-40); MCH 31.6 pg (25.7-33.7); MEAN CELL VOLUME 92.9 fl (80-96); MEAN PLT VOLUME 6.6 fl (7.5-11.1); NEUT % 88.5 % (42.8-82.8); PLATELET COUNT 173 K/MM3 (134-434); RBC 3.67 M/mm3 (3.60-5.2); RDW 16.3 % (11.6-15.6)
--- NOTE | 2018-03-01 09:46 | PN ---
Progress Note, Physician Chief Complaint: day # 1 s/p kyphoplasty - Current Medication List Current Medications: Active Medications Bupropion HCl (Wellbutrin Xl -) 150 mg PO DAILY REPLACED BY [facility] Calcium Carbonate/Cholecalciferol (Os-Derrick 500+D -) 1 tab PO DAILY REPLACED BY [facility] Cholecalciferol (Vitamin D3 -) 5,000 unit PO DAILY REPLACED BY [facility] Cyclobenzaprine HCl (Flexeril -) 10 mg PO BID REPLACED BY [facility] Last Admin: 02/28/18 22:44 Dose: 10 mg Guaifenesin (Robitussin -) 10 ml PO Q6H PRN PRN Reason: COUGH Last Admin: 02/28/18 23:01 Dose: 10 ml Ceftriaxone Sodium 1 gm/ (Dextrose) 50 mls @ 100 mls/hr IVPB DAILY REPLACED BY [facility]; Protocol Sodium Chloride (Normal Saline -) 1,000 mls @ 100 mls/hr IV ASDIR REPLACED BY [facility] Last Admin: 02/28/18 21:15 Dose: 0 mls Lorazepam (Ativan -) 1 mg PO TID REPLACED BY [facility] Last Admin: 03/01/18 06:51 Dose: 1 mg Morphine Sulfate (Morphine Sulfate) 2 mg SQ Q6H PRN PRN Reason: PAIN LEVEL 7 - 10 Non-Formulary Medication (Cyclosporine [Restasis]) 1 drop OU BID REPLACED BY [facility] Rosuvastatin Calcium (Crestor -) 5 mg PO HS REPLACED BY [facility] Last Admin: 02/28/18 22:44 Dose: 5 mg Sumatriptan Succinate (Imitrex -) 25 mg PO DAILY PRN PRN Reason: HEADACHE Thyroid ([place] Thyroid -) 30 mg PO 0700 REPLACED BY [facility] Last Admin: 03/01/18 06:49 Dose: 30 mg Tramadol HCl (Ultram -) 50 mg PO Q6H PRN PRN Reason: PAIN LEVEL 4 - 6 - Objective Vital Signs: Vital Signs Temperature 98.1 F 03/01/18 08:48 Pulse Rate 99 H 03/01/18 08:48 Respiratory Rate 18 03/01/18 08:48 Blood Pressure 122/85 03/01/18 08:48 O2 Sat by Pulse Oximetry (%) 97 02/28/18 21:15 Labs: CBC, BMP 03/01/18 09:10 INR, PTT INR 1.10 (0.82-1.09) 02/25/18 11:59 Assessment/Plan Did well with sedation for kyphoplasty. No anesthetic issues/complications
[2018-03-01] MEDS ORDERED: CHOLECALCIFEROL (VITAMIN D3) 1,000 UNIT TABLET (FP) PO SCH (10:00)
[2018-03-01 10:07] LABS: ALBUMIN 2.4 g/dl (3.4-5.0); ANION GAP 6 (8-16); BILIRUBIN,TOTAL 0.4 mg/dL (0.2-1.0); BLOOD UREA NITROGEN 10 mg/dL (7-18); CALCIUM 7.8 mg/dL (8.5-10.1); CHLORIDE 112 mmol/L (98-107); CO2 26 mmol/L (21-32); CREATININE 0.4 mg/dL (0.55-1.02); GLUCOSE,RANDOM 106 mg/dL (74-106); POTASSIUM 3.6 mmol/L (3.5-5.1); SGOT/AST 18 U/L (15-37); SGPT/ALT 24 U/L (12-78); SODIUM 144 mmol/L (136-145); TOT PROT 5.4 g/dl (6.4-8.2)
[2018-03-01 10:08] LABS: ALK PHOS 216 U/L (45-117)
[2018-03-01] MEDS ORDERED: cefTRIAXone SODIUM 1 GM VIAL ONE (10:36)
[2018-03-01] MEDS ORDERED: DEXTROSE 5%-WATER - 50 ML IVPB ONE (10:36)
[2018-03-01] MEDS: guaiFENesin 200 MG/10 ML 10 ML UNIT-DOSE CUPS PO PRN (10:40)
[2018-03-01] MEDS: CHOLECALCIFEROL (VITAMIN D3) 1,000 UNIT TABLET (FP) PO SCH (10:40)
[2018-03-01] MEDS: CYCLOBENZAPRINE HCL 10 MG TABLET (FP) PO SCH ×2 (10:40→21:23)
[2018-03-01] MEDS: CALCIUM 500MG/VIT-D 200 UNITS COMBO TABLET (FP) PO SCH (10:40)
[2018-03-01] MEDS: CEFTRIAXONE 1 GM in DEXTROSE 5%-WATER - 50 ML IVPB SCH (10:41)
[2018-03-01 11:28] LABS: CHOLESTEROL 188 mg/dL (50-200); TRIGLYCERIDES 159 mg/dL (35-160)
[2018-03-01 11:30] LABS: HDL CHOLESTEROL 35 mg/dL (40-60)
--- NOTE | 2018-03-01 11:49 | PN ---
Physical Exam: SUBJECTIVE: Patient seen and examined at the bedside. Feels better, in no acute distress. Was on Synthroid up to 4 weeks ago. Reports that she takes her armour daily, has missed only one dose in the past. OBJECTIVE: soapstoner consulted for osteo and TSH Vital Signs Period Temp Pulse Resp BP Sys/Fitzpatrick Pulse Ox Last 24 Hr 98 F-98.6 F 93-115 18-23 99-122/67-85 92-98 GENERAL: The patient is awake, alert, and fully oriented, in no acute distress. HEAD: Normal with no signs of trauma. EYES: PERRL, extraocular movements intact, sclera anicteric, conjunctiva clear. No ptosis. ENT: Ears normal, nares patent, oropharynx clear without exudates, moist mucous membranes. NECK: Trachea midline, full range of motion, supple. LUNGS: Breath sounds equal, clear to auscultation bilaterally, no wheezes HEART: sinus tachycardia noted by auscultation, confirmed with EKG ABDOMEN: Soft, nontender, nondistended, normoactive bowel sounds, no guarding, no rebound, no hepatosplenomegaly, no masses. EXTREMITIES: no edema. NEUROLOGICAL: Normal speech, gait not observed. PSYCH: Normal mood, normal affect. SKIN: Warm, dry, normal turgor, no rashes or lesions noted Laboratory Results - last 24 hr 02/28/18 02/28/18 02/28/18 12:39 12:39 21:50 WBC 11.9 H D RBC 4.28 Hgb 13.5 D Hct 40.4 MCV 94.3 MCH 31.5 MCHC 33.4 RDW 16.7 H Plt Count 180 MPV 6.9 L Absolute Neuts (auto) 10.8 Neutrophils % 90.6 H Lymphocytes % 4.8 L D Monocytes % 4.2 Eosinophils % 0.1 D Basophils % 0.3 Nucleated RBC % 0 Sodium 143 Potassium 3.3 L Chloride 107 Carbon Dioxide 26 Anion Gap 10 BUN 12 Creatinine 0.5 L Creat Clearance w eGFR > 60 Random Glucose 127 H Lactic Acid 0.7 Calcium 8.4 L Magnesium 1.9 Total Bilirubin 0.6 AST 17 ALT 28 Alkaline Phosphatase 249 H Total Protein 6.3 L Albumin 2.8 L Triglycerides Cholesterol Total LDL Cholesterol HDL Cholesterol TSH 03/01/18 03/01/18 03/01/18 09:10 09:10 09:10 WBC 10.0 RBC 3.67 Hgb 11.6 D Hct 34.1 D MCV 92.9 MCH 31.6 MCHC 34.0 RDW 16.3 H Plt Count 173 MPV 6.6 L Absolute Neuts (auto) 8.8 Neutrophils % 88.5 H Lymphocytes % 6.3 L D Monocytes % 5.0 Eosinophils % 0.1 Basophils % 0.1 Nucleated RBC % 0 Sodium 144 Potassium 3.6 Chloride 112 H Carbon Dioxide 26 Anion Gap 6 L BUN 10 Creatinine 0.4 L Creat Clearance w eGFR > 60 Random Glucose 106 Lactic Acid Calcium 7.8 L Magnesium 2.0 Total Bilirubin 0.4 D AST 18 ALT 24 Alkaline Phosphatase 216 H Total Protein 5.4 L Albumin 2.4 L Triglycerides Cholesterol Total LDL Cholesterol HDL Cholesterol TSH 0.19 L 03/01/18 09:10 WBC RBC Hgb Hct MCV MCH MCHC RDW Plt Count MPV Absolute Neuts (auto) Neutrophils % Lymphocytes % Monocytes % Eosinophils % Basophils % Nucleated RBC % Sodium Potassium Chloride Carbon Dioxide Anion Gap BUN Creatinine Creat Clearance w eGFR Random Glucose Lactic Acid Calcium Magnesium Total Bilirubin AST ALT Alkaline Phosphatase Total Protein Albumin Triglycerides 159 Cholesterol 188 Total LDL Cholesterol 129 H HDL Cholesterol 35 L TSH Active Medications Generic Name Dose Route Start Last Admin Trade Name Freq PRN Reason Stop Dose Admin Bupropion HCl 150 mg 03/01/18 10:00 03/01/18 10:49 Wellbutrin Xl - PO 150 mg DAILY TD Administration Calcium Carbonate/Cholecalciferol 1 tab 03/01/18 10:00 03/01/18 10:40 Os-Derrick 500+D - PO 1 tab DAILY TD Administration Cholecalciferol 5,000 unit 03/01/18 10:00 03/01/18 10:40 Vitamin D3 - PO 5,000 unit DAILY TD Administration Cyclobenzaprine HCl 10 mg 02/28/18 22:00 03/01/18 10:40 Flexeril - PO 10 mg BID TD Administration Guaifenesin 10 ml 02/28/18 20:49 03/01/18 10:40 Robitussin - PO 10 ml Q6H PRN Administration COUGH Ceftriaxone Sodium 1 gm/ 50 mls @ 100 mls/hr 03/01/18 10:00 03/01/18 10:41 Dextrose IVPB 100 mls/hr DAILY TD Administration Protocol Sodium Chloride 1,000 mls @ 100 mls/hr 02/28/18 21:00 02/28/18 21:15 Normal Saline - IV 0 mls ASDIR TD Administration Lorazepam 1 mg 02/28/18 22:00 03/01/18 06:51 Ativan - PO 1 mg TID TD Administration Morphine Sulfate 2 mg 02/28/18 20:49 Morphine Sulfate SQ Q6H PRN PAIN LEVEL 7 - 10 Non-Formulary Medication 1 drop 02/28/18 22:00 Cyclosporine [Restasis] OU BID TD Rosuvastatin Calcium 5 mg 02/28/18 22:00 02/28/18 22:44 Crestor - PO 5 mg HS TD Administration Sumatriptan Succinate 25 mg 02/28/18 20:49 Imitrex - PO DAILY PRN HEADACHE Thyroid 30 mg 03/01/18 07:00 03/01/18 06:49 [place] Thyroid - PO 30 mg 0700 TD Administration Tramadol HCl 50 mg 02/28/18 20:49 Ultram - PO Q6H PRN PAIN LEVEL 4 - 6 ASSESSMENT/PLAN: Patient is a 62 year old female with a significant past medical history of anxiety, hyperlipidemia, hypothyroidism, breast cancer (17 years ago) s/p right lumpectomy, osteoporosis, hysterectomy, kyphoplasty T9-T10 fracture ( 2 weeks ago), who presents to the ED with back pain. She states that 2 weeks ago she had Kyphoplasty on T9 and T10 fractures. She normally ambulates with a walker but unable to get out of bed due to her back pain. Imaging: MRI thoracic spine w/o contrast: T10 mild recent compression deformity of the superior endplate with bone marrow edema. Posterior cortex is intact. No evidence of retropulsion. Cardiology: Tachycardia, resolved EKG with ST @ 120s, has been with tachycardia since admission. Tachycardia likely secondary to acute back pain, hypokalemia and UTI. Patient also has history of anxiety. Currently on pain regimen with morphine. Potassium normal today, started on Ceftriaxone for UTI (day #2), Denies chest pain, denies shortness of breath. Denies any etoh or substance abuse. TSH 0.91, on armour. endocrinology consulted. HLD, chronic Lipid panel in am. Back Pain S/p Kyphoplasty, POD #1 Monitor pain Physical therapy Incentive Spirometer SCDs Psyche On Ativan for anxiety disorder. Mildly anxious on exam. Endocrine: Hypothyroidism, TSH 0.19 On [place], on Synthroid 4 weeks prior. Endocrinology consulted. FEN NS @ 100cc/hr monitor electrolytes regular Prophy: SCDs Incentive spirometer Visit type - Emergency Visit Emergency Visit: Yes ED Registration Date: 02/28/18 Care time: The patient presented to the Emergency Department on the above date and was hospitalized for further evaluation of their emergent condition. - New Patient This patient is new to me today: No - Critical Care Critical Care patient: No - Discharge Referral Referred to [facility] Med P.C.: No
--- NOTE | 2018-03-01 14:27 | CONSULT ---
Consult Consult Specialty:: Endocrinology [facility] Reason for Consultation:: Osteoporosis - History of Present Illness Chief Complaint: Back pain History of Present Illness: This is a 62 year old female is with h/o Rt breast ca s/p lumpectomy,chemo radiation 18 years ago, 2 years ago stopped boniva and prior to that completed 5 years tamoxifen and Femara with Dr. Naidu, anxiety, hypothyroid, OA presented to the ED with intractable back pain. Two weeks ago pt underwent kyphoplasty for spinal fracture with Dr. Win. She was feeling well until this week tuesday when she started to have increased pain with movement and ambulation. She was unable to get out of bed the day of admission. Pt denies decreased sensation to lower ext, incontinence with bowel or bladder, chest pain , sob, fever, chills. Pt had kyphoplasty of T8,11 and 12 and is referred for management of Osteoporosis. Pt gives h/o taking PPI for many years until recently. She says she was offered treatment with different medication for osteoporosis by her Oncologist which she had refused in the past. - History Source History Provided By: Patient Limitations to Obtaining History: No Limitations - Past Medical History ...: No Psych: Yes: Anxiety, Depression Endocrine: Yes: Hypothyroidism, Other (Osteoporosis) - Past Surgical History Past Surgical History: Yes: Arthrosocopy (r shoulder), Hysterectomy - Alcohol/Substance Use Hx Alcohol Use: No - Smoking History Smoking history: Never smoked Have you smoked in the past 12 months: No - Social History ADL: Independent Home Medications - Allergies Allergies/Adverse Reactions: Allergies Allergy/AdvReac Type Severity Reaction Status Date / Time fluconazole [From Diflucan] Allergy Verified 02/25/18 12:45 prochlorperazine Allergy Verified 02/25/18 12:45 [From Compazine] - Home Medications Home Medications: Ambulatory Orders Bupropion HCl [Wellbutrin Sr] 150 mg PO DAILY 02/25/18 Cyclobenzaprine HCl [Flexeril 10 mg] 10 mg PO BID PRN 02/25/18 Lorazepam [Ativan] 1 mg PO TID 02/25/18 Rosuvastatin Calcium [Crestor] 5 mg PO HS 02/25/18 Thyroid,Pork [[place] Thyroid] 30 mg PO DAILY 02/25/18 Tramadol HCl 50 mg PO PRN PRN 02/25/18 Cyclobenzaprine HCl [Flexeril -] 10 mg PO PRN 02/26/18 Sumatriptan Succinate [Imitrex] 25 mg PO PRN PRN 02/26/18 Cyclosporine [Restasis] 1 drop OU BID 02/27/18 Estradiol [Estring] 1 each VG ASDIR 02/27/18 Patient's Own Medication [Patient's Own Med (Nf) -] 2 each PO BID 02/27/18 Patient's Own Medication [Patient's Own Med (Nf) -] 5,000 each PO DAILY Review of Systems - Review of Systems Constitutional: reports: No Symptoms Eyes: reports: No Symptoms HENT: reports: No Symptoms Neck: reports: No Symptoms Cardiovascular: reports: No Symptoms Respiratory: reports: No Symptoms Gastrointestinal: reports: No Symptoms Genitourinary: reports: No Symptoms Musculoskeletal: reports: Back Pain Neurological: reports: No Symptoms Endocrine: reports: No Symptoms Physical Exam Vital Signs: Vital Signs Temperature 98.1 F 03/01/18 08:48 Pulse Rate 99 H 03/01/18 08:48 Respiratory Rate 18 03/01/18 08:48 Blood Pressure 122/85 03/01/18 08:48 O2 Sat by Pulse Oximetry (%) 97 02/28/18 21:15 Constitutional: Yes: No Distress, Calm Eyes: Yes: Conjunctiva Clear, EOM Intact HENT: Yes: Atraumatic, Normocephalic Neck: Yes: Supple, Trachea Midline Cardiovascular: Yes: Regular Rate and Rhythm Respiratory: Yes: Regular, CTA Bilaterally Gastrointestinal: Yes: Normal Bowel Sounds, Soft Musculoskeletal: Yes: Back Pain Extremities: Yes: WNL Edema: No Integumentary: Yes: WNL Neurological: Yes: Alert, Oriented Psychiatric: Yes: Alert, Oriented Labs: CBC, BMP 03/01/18 09:10 03/01/18 09:10 Imaging - Results Cat Scan: Report Reviewed MRI: Report Reviewed Assessment/Plan AP; Vertebral fractures s/p Kyphoplasty osteoporosis Hypothyroidism Anxiety Bone density done on 07.06.17 at [place] imaging shows Lumbar spine T score of -3.2, Femoral neck -2.4 and Total Hip -1.6. Compared with one from 7.6.15: 22.9% decrease in BMD of lumbar spine MRI of spine shows multiple fractures Treatment options including Forteo injections discussed Will probably need to get authorization from her insurance company. Will call her Insurance. On [place] thyroid Will F/U
[2018-03-01] MEDS: MORPHINE SULFATE 2 MG/ML VIAL SQ PRN ×2 (15:17→21:27)
[2018-03-01] MEDS: ROSUVASTATIN CA 5 MG TABLET (FP) PO SCH (21:23)
[2018-03-01] MEDS: SODIUM CHLORIDE 1,000 ML IV SCH (21:25)
[2018-03-02] MEDS: THYROID 30 MG TABLET PO SCH (06:16)
[2018-03-02] MEDS: LORazepam 1 MG TABLET PO SCH ×3 (06:57→22:08)
[2018-03-02 10:45] LABS: CHLORIDE 111 mmol/L (98-107); SODIUM 147 mmol/L (136-145)
[2018-03-02] MEDS ORDERED: DEXTROSE 5%-WATER - 50 ML IVPB ONE (10:52)
[2018-03-02] MEDS ORDERED: cefTRIAXone SODIUM 1 GM VIAL ONE (10:52)
[2018-03-02] MEDS: CEFTRIAXONE 1 GM in DEXTROSE 5%-WATER - 50 ML IVPB SCH (11:05)
[2018-03-02] MEDS: CYCLOBENZAPRINE HCL 10 MG TABLET (FP) PO SCH ×2 (11:05→22:07)
[2018-03-02] MEDS: CALCIUM 500MG/VIT-D 200 UNITS COMBO TABLET (FP) PO SCH (11:05)
[2018-03-02 11:10] LABS: ALBUMIN 2.5 g/dl (3.4-5.0); ALK PHOS 200 U/L (45-117); ANION GAP 10 (8-16); BILIRUBIN,TOTAL 0.3 mg/dL (0.2-1.0); BLOOD UREA NITROGEN 13 mg/dL (7-18); CALCIUM 7.6 mg/dL (8.5-10.1); CO2 26 mmol/L (21-32); CREATININE 0.5 mg/dL (0.55-1.02); GLUCOSE,RANDOM 90 mg/dL (74-106); MAGNESIUM 1.9 mg/dL (1.8-2.4); SGOT/AST 20 U/L (15-37); SGPT/ALT 25 U/L (12-78); TOT PROT 5.3 g/dl (6.4-8.2)
[2018-03-02] MEDS: CHOLECALCIFEROL (VITAMIN D3) 1,000 UNIT TABLET (FP) PO SCH (11:11)
[2018-03-02 11:52] LABS: BASO % 0.4 % (0-2.0); EOS % 1.6 % (0-4.5); HEMOGLOBIN 11.4 GM/dL (10.7-15.3); LYMPH % 11.5 % (8-40); MCH 31.6 pg (25.7-33.7); MCHC 33.5 g/dl (32.0-36.0); MEAN CELL VOLUME 94.1 fl (80-96); MEAN PLT VOLUME 6.8 fl (7.5-11.1); MONO % 8.8 % (3.8-10.2); NEUT % 77.7 % (42.8-82.8); PLATELET COUNT 181 K/MM3 (134-434); RBC 3.61 M/mm3 (3.60-5.2); WHITE BLOOD COUNT 9.1 K/mm3 (4.0-10.0)
[2018-03-02] MEDS: MORPHINE SULFATE 2 MG/ML VIAL SQ PRN ×2 (12:12→22:17)
[2018-03-02] MEDS ORDERED: POTASSIUM CHLORIDE ORAL LIQUID 20 MEQ/15 ML PO ONE ×2 (12:30→20:15)
[2018-03-02] MEDS ORDERED: SENNOSIDES 8.6MG TABLET (FP) PO PRN (13:10)
[2018-03-02 13:14] LABS: ANISOCYTOSIS 1+; MACROCYTOSIS 1+; PLATELET ESTIMATE NORMAL
--- NOTE | 2018-03-02 13:40 | PATH ---
Surgical Pathology Report Patient Name: SARAH HERNANDEZ Med. Rec. #: [id number] /Age/Gender: 1955 (Age: 62) / F Account: [id number] Location: [facility] MED/SURG Taken: 02/28/2018 Received: 03/01/2018 Reported: 03/02/2018 Physicians: Laz Win M.D. PHYSICIAN EMERGENCY DEPT Specimen(s) Received BX BONE T12 Clinical History Multiple acute compression fracture Final Diagnosis BONE, T12, BIOPSY: BONE MARROW ELEMENTS WITH TRILINEAGE HEMATOPOIESIS IN A BACKGROUND OF BLOOD AND SCANT FRAGMENTS OF BONE. Electronically Signed Mariela Ni M.D. Gross Description Received in formalin labeled "bone biopsy T12," is a 2.5 x 1.7 x 0.3 cm aggregate of red-brown blood clot, possibly containing bone fragments. No definite bone is identified grossly. The specimen is entirely submitted in one cassette, following decalcification. /03/01/2018 [facility]/03/01/2018
[2018-03-02] MEDS: POLYETHYLENE GLYCOL 3350 119 GM BTL PO SCH (14:56)
[2018-03-02] MEDS: DOCUSATE SODIUM 100 MG CAPSULE (FP) PO SCH ×2 (14:57→22:07)
--- NOTE | 2018-03-02 15:10 | PN ---
Progress Note (short form) - Note Progress Note: C/o back pain, worse after she tried to walk with help of walker Vital Signs Period Temp Pulse Resp BP Sys/Fitzpatrick Pulse Ox Last 24 Hr 97.7 F-98.5 F 90-108 18-20 115-132/70-81 95-97 PE: AOx3 HEENT: PERRL,EOMI Neck: supple Lungs: CTA CVS: S1S2 Abd: Benign Ext: No edema Neuro: No focal deficit CMP Sodium 147 mmol/L (136-145) H 03/02/18 09:45 Potassium 3.0 mmol/L (3.5-5.1) L 03/02/18 09:45 Chloride 111 mmol/L (98-107) H 03/02/18 09:45 Carbon Dioxide 26 mmol/L (21-32) 03/02/18 09:45 Anion Gap 10 (8-16) 03/02/18 09:45 BUN 13 mg/dL (7-18) 03/02/18 09:45 Creatinine 0.5 mg/dL (0.55-1.02) L 03/02/18 09:45 Creat Clearance w eGFR > 60 (>60) 03/02/18 09:45 Random Glucose 90 mg/dL (74-106) 03/02/18 09:45 Lactic Acid 0.7 mmol/L (0.0-2.0) 02/28/18 21:50 Calcium 7.6 mg/dL (8.5-10.1) L 03/02/18 09:45 Phosphorus 3.7 mg/dL (2.5-4.9) 02/26/18 07:45 Magnesium 1.9 mg/dL (1.8-2.4) 03/02/18 09:45 Total Bilirubin 0.3 mg/dL (0.2-1.0) D 03/02/18 09:45 AST 20 U/L (15-37) 03/02/18 09:45 ALT 25 U/L (12-78) 03/02/18 09:45 Alkaline Phosphatase 200 U/L (45-117) H 03/02/18 09:45 Total Protein 5.3 g/dl (6.4-8.2) L 03/02/18 09:45 Albumin 2.5 g/dl (3.4-5.0) L 03/02/18 09:45 Triglycerides 159 mg/dL (35-160) 03/01/18 09:10 Cholesterol 188 mg/dL (50-200) 03/01/18 09:10 Total LDL Cholesterol 129 mg/dL (5-100) H 03/01/18 09:10 HDL Cholesterol 35 mg/dL (40-60) L 03/01/18 09:10 TSH 0.19 uIU/ml (0.358-3.74) L 03/01/18 09:10 Current Medications Generic Name Dose Route Start Last Admin Trade Name Freq PRN Reason Stop Dose Admin Bupropion HCl 150 mg 03/01/18 10:00 03/02/18 11:12 Wellbutrin Xl - PO 150 mg DAILY TD Administration Calcium Carbonate/Cholecalciferol 1 tab 03/01/18 10:00 03/02/18 11:05 Os-Derrick 500+D - PO 1 tab DAILY TD Administration Cholecalciferol 5,000 unit 03/01/18 10:00 03/02/18 11:11 Vitamin D3 - PO 5,000 unit DAILY TD Administration Cyclobenzaprine HCl 10 mg 02/28/18 22:00 03/02/18 11:05 Flexeril - PO 10 mg BID TD Administration Docusate Sodium 100 mg 03/02/18 14:00 03/02/18 14:57 Colace - PO 100 mg TID TD Administration Guaifenesin 10 ml 02/28/18 20:49 03/01/18 10:40 Robitussin - PO 10 ml Q6H PRN Administration COUGH Ceftriaxone Sodium 1 gm/ 50 mls @ 100 mls/hr 03/01/18 10:00 03/02/18 11:05 Dextrose IVPB 100 mls/hr DAILY TD Administration Protocol Lorazepam 1 mg 02/28/18 22:00 03/02/18 14:57 Ativan - PO 1 mg TID TD Administration Morphine Sulfate 2 mg 02/28/18 20:49 03/02/18 12:12 Morphine Sulfate SQ 2 mg Q6H PRN Administration PAIN LEVEL 7 - 10 Non-Formulary Medication 1 drop 02/28/18 22:00 Cyclosporine [Restasis] OU BID TD Polyethylene Glycol 17 gm 03/02/18 13:45 03/02/18 14:56 Miralax (For Daily Use) - PO 17 gm DAILY TD Administration Rosuvastatin Calcium 5 mg 02/28/18 22:00 03/01/18 21:23 Crestor - PO 5 mg HS TD Administration Senna 2 tab 03/02/18 13:10 Senna - PO HS PRN CONSTIPATION Sumatriptan Succinate 25 mg 02/28/18 20:49 Imitrex - PO DAILY PRN HEADACHE Thyroid 30 mg 03/01/18 07:00 03/02/18 06:16 [place] Thyroid - PO 30 mg 0700 TD Administration Tramadol HCl 50 mg 02/28/18 20:49 Ultram - PO Q6H PRN PAIN LEVEL 4 - 6 AP; Vertebral fractures s/p Kyphoplasty osteoporosis Hypothyroidism Anxiety TSH 0.19 Bone density done on 07.06.17 at [place] [facility] shows Lumbar spine T score of -3.2, Femoral neck -2.4 and Total Hip -1.6. Compared with one from 7.6.15: 22.9% decrease in BMD of lumbar spine Treatment options including Forteo injections discussed. Pt agrees to do it. Not available in hospital pharmacy. Will try to authorization as outpt. Side effects including rare osteosarcoma discussed. Pt has no h/o of bone mets or radiation therapy to bone. No h/o paget's disese D/c Armor Thyroid Start LT4 the same dose she was on prior to switching to Armorthyroid. Family to find the dose. Will F/U
--- NOTE | 2018-03-02 15:43 | PN ---
Physical Exam: SUBJECTIVE: Patient seen and examined at the bedside. OBJECTIVE: Patient ambulated 80 feet today. Discharge plan: 1. rehab ([facility], [facility] or [facility]) are all possibilities. 2. home (patient ambulated 80 feet). Vital Signs Period Temp Pulse Resp BP Sys/Fitzpatrick Pulse Ox Last 24 Hr 97.7 F-98.5 F 90-108 18-20 115-132/70-81 95-97 GENERAL: The patient is awake, alert, and fully oriented, in no acute distress. HEAD: Normal with no signs of trauma. EYES: PERRL, extraocular movements intact, sclera anicteric, conjunctiva clear. No ptosis. ENT: Ears normal, nares patent, oropharynx clear without exudates, moist mucous membranes. NECK: Trachea midline, full range of motion, supple. LUNGS: Breath sounds equal, clear to auscultation bilaterally, no wheezes HEART: sinus tachycardia noted by auscultation, confirmed with EKG ABDOMEN: Soft, nontender, nondistended, normoactive bowel sounds, no guarding, no rebound, no hepatosplenomegaly, no masses. EXTREMITIES: no edema. NEUROLOGICAL: Normal speech, gait not observed. PSYCH: Normal mood, normal affect. SKIN: Warm, dry, normal turgor, no rashes or lesions noted Laboratory Results - last 24 hr 03/02/18 03/02/18 09:45 09:45 WBC 9.1 RBC 3.61 Hgb 11.4 Hct 34.0 MCV 94.1 MCH 31.6 MCHC 33.5 RDW 16.0 H Plt Count 181 MPV 6.8 L Absolute Neuts (auto) 7.1 Neutrophils % 77.7 Neutrophils % (Manual) 76.5 Band Neutrophils % 1.0 Lymphocytes % 11.5 D Lymphocytes % (Manual) 12.7 Monocytes % 8.8 Monocytes % (Manual) 7 Eosinophils % 1.6 D Eosinophils % (Manual) 1.0 Basophils % 0.4 D Basophils % (Manual) 0.0 Myelocytes % (Man) 0 Promyelocytes % (Man) 0 Blast Cells % (Manual) 0 Nucleated RBC % 0 Metamyelocytes 1 Hypochromia 0 Platelet Estimate Normal Polychromasia 0 Poikilocytosis 0 Anisocytosis 1+ Microcytosis 0 Macrocytosis 1+ Sodium 147 H Potassium 3.0 L Chloride 111 H Carbon Dioxide 26 Anion Gap 10 BUN 13 Creatinine 0.5 L Creat Clearance w eGFR > 60 Random Glucose 90 Calcium 7.6 L Magnesium 1.9 Total Bilirubin 0.3 D AST 20 ALT 25 Alkaline Phosphatase 200 H Total Protein 5.3 L Albumin 2.5 L Active Medications Generic Name Dose Route Start Last Admin Trade Name Freq PRN Reason Stop Dose Admin Bupropion HCl 150 mg 03/01/18 10:00 03/02/18 11:12 Wellbutrin Xl - PO 150 mg DAILY TD Administration Calcium Carbonate/Cholecalciferol 1 tab 03/01/18 10:00 03/02/18 11:05 Os-Derrick 500+D - PO 1 tab DAILY TD Administration Cholecalciferol 5,000 unit 03/01/18 10:00 03/02/18 11:11 Vitamin D3 - PO 5,000 unit DAILY TD Administration Cyclobenzaprine HCl 10 mg 02/28/18 22:00 03/02/18 11:05 Flexeril - PO 10 mg BID TD Administration Docusate Sodium 100 mg 03/02/18 14:00 03/02/18 14:57 Colace - PO 100 mg TID TD Administration Guaifenesin 10 ml 02/28/18 20:49 03/01/18 10:40 Robitussin - PO 10 ml Q6H PRN Administration COUGH Ceftriaxone Sodium 1 gm/ 50 mls @ 100 mls/hr 03/01/18 10:00 03/02/18 11:05 Dextrose IVPB 100 mls/hr DAILY TD Administration Protocol Lorazepam 1 mg 02/28/18 22:00 03/02/18 14:57 Ativan - PO 1 mg TID TD Administration Morphine Sulfate 2 mg 02/28/18 20:49 03/02/18 12:12 Morphine Sulfate SQ 2 mg Q6H PRN Administration PAIN LEVEL 7 - 10 Non-Formulary Medication 1 drop 02/28/18 22:00 Cyclosporine [Restasis] OU BID TD Polyethylene Glycol 17 gm 03/02/18 13:45 03/02/18 14:56 Miralax (For Daily Use) - PO 17 gm DAILY TD Administration Rosuvastatin Calcium 5 mg 02/28/18 22:00 03/01/18 21:23 Crestor - PO 5 mg HS TD Administration Senna 2 tab 03/02/18 13:10 Senna - PO HS PRN CONSTIPATION Sumatriptan Succinate 25 mg 02/28/18 20:49 Imitrex - PO DAILY PRN HEADACHE Thyroid 30 mg 03/01/18 07:00 03/02/18 06:16 [place] Thyroid - PO 30 mg 0700 TD Administration Tramadol HCl 50 mg 02/28/18 20:49 Ultram - PO Q6H PRN PAIN LEVEL 4 - 6 ASSESSMENT/PLAN: Patient is a 62 year old female with a significant past medical history of anxiety, hyperlipidemia, hypothyroidism, breast cancer (17 years ago) s/p right lumpectomy, osteoporosis, hysterectomy, kyphoplasty T9-T10 fracture ( 2 weeks ago), who presents to the ED with back pain. She states that 2 weeks ago she had Kyphoplasty on T9 and T10 fractures. She normally ambulates with a walker but unable to get out of bed due to her back pain. Imaging: MRI thoracic spine w/o contrast: T10 mild recent compression deformity of the superior endplate with bone marrow edema. Posterior cortex is intact. No evidence of retropulsion. Cardiology: Tachycardia, resolved EKG with ST @ 120s, has been with tachycardia since admission. Tachycardia likely secondary to acute back pain, hypokalemia or UTI. Patient also has history of anxiety. Currently on pain regimen with morphine. Potassium repleted , started on Ceftriaxone for UTI (day #2), Denies chest pain, denies shortness of breath. Denies any etoh or substance abuse. TSH 0.91, on armour.(was on Synthroid 1 month ago) endocrinology consulted. HLD, chronic Lipid panel in am. Back Pain Vertebral fractures S/p Kyphoplasty, POD #2 Monitor pain Physical therapy Incentive Spirometer SCDs For Forteo injections as outpatient per Dr. Sherman Bueno On Ativan for anxiety disorder. Mildly anxious on exam. Endocrine: Hypothyroidism, TSH 0.19 On [place], on Synthroid 4 weeks prior Stop [place] once patient confirms home Synthroid dose, discussed with endocrinology. FEN NS @ 100cc/hr monitor electrolytes, replete K and repeat labs regular Prophy: SCDs Incentive spirometer
[2018-03-02] MEDS ORDERED: POTASSIUM CHLORIDE TABS 20 MEQ TABLET.ER (FP) PO ONE (18:00)
[2018-03-02] MEDS ORDERED: PT OWN MED DRAWER 7, Y5N ONE (21:58)
[2018-03-02] MEDS: ROSUVASTATIN CA 5 MG TABLET (FP) PO SCH (22:08)
[2018-03-03] MEDS: DOCUSATE SODIUM 100 MG CAPSULE (FP) PO SCH ×2 (05:32→13:56)
[2018-03-03] MEDS: LORazepam 1 MG TABLET PO SCH ×2 (05:32→13:56)
[2018-03-03] MEDS ORDERED: LEVOTHYROXINE NA 50 MCG TABLET (FP) PO SCH (07:00)
[2018-03-03 08:04] LABS: BASO % 0.9 % (0-2.0); EOS % 3.3 % (0-4.5); HEMATOCRIT 35.8 % (32.4-45.2); HEMOGLOBIN 12.1 GM/dL (10.7-15.3); LYMPH % 17.6 % (8-40); MCH 31.6 pg (25.7-33.7); MCHC 33.7 g/dl (32.0-36.0); MEAN CELL VOLUME 93.6 fl (80-96); MEAN PLT VOLUME 6.7 fl (7.5-11.1); MONO % 9.2 % (3.8-10.2); PLATELET COUNT 178 K/MM3 (134-434); RBC 3.83 M/mm3 (3.60-5.2); RDW 16.3 % (11.6-15.6); WHITE BLOOD COUNT 8.3 K/mm3 (4.0-10.0)
[2018-03-03] MEDS ORDERED: PT OWN MED DRAWER 7, Y5N ONE ×5 (09:19→13:52)
[2018-03-03] MEDS ORDERED: DEXTROSE 5%-WATER - 50 ML IVPB ONE (09:19)
[2018-03-03] MEDS ORDERED: cefTRIAXone SODIUM 1 GM VIAL ONE (09:19)
--- NOTE | 2018-03-03 09:21 | PN ---
Progress Note (short form) - Note Progress Note: No new complaints Vital Signs Period Temp Pulse Resp BP Sys/Fitzpatrick Pulse Ox Last 24 Hr 97.9 F-98.5 F 88-112 18-20 109-128/75-82 95 PE: AOx3 HEENT: PERRL,EOMI Neck: supple Lungs: CTA CVS: S1S2 Abd: Benign Ext: No edema Neuro: No focal deficit CMP Sodium 147 mmol/L (136-145) H 03/02/18 09:45 Potassium 3.3 mmol/L (3.5-5.1) L 03/02/18 16:29 Chloride 111 mmol/L (98-107) H 03/02/18 09:45 Carbon Dioxide 26 mmol/L (21-32) 03/02/18 09:45 Anion Gap 10 (8-16) 03/02/18 09:45 BUN 13 mg/dL (7-18) 03/02/18 09:45 Creatinine 0.5 mg/dL (0.55-1.02) L 03/02/18 09:45 Creat Clearance w eGFR > 60 (>60) 03/02/18 09:45 Random Glucose 90 mg/dL (74-106) 03/02/18 09:45 Lactic Acid 0.7 mmol/L (0.0-2.0) 02/28/18 21:50 Calcium 7.6 mg/dL (8.5-10.1) L 03/02/18 09:45 Phosphorus 3.7 mg/dL (2.5-4.9) 02/26/18 07:45 Magnesium 1.9 mg/dL (1.8-2.4) 03/02/18 09:45 Total Bilirubin 0.3 mg/dL (0.2-1.0) D 03/02/18 09:45 AST 20 U/L (15-37) 03/02/18 09:45 ALT 25 U/L (12-78) 03/02/18 09:45 Alkaline Phosphatase 200 U/L (45-117) H 03/02/18 09:45 Total Protein 5.3 g/dl (6.4-8.2) L 03/02/18 09:45 Albumin 2.5 g/dl (3.4-5.0) L 03/02/18 09:45 Triglycerides 159 mg/dL (35-160) 03/01/18 09:10 Cholesterol 188 mg/dL (50-200) 03/01/18 09:10 Total LDL Cholesterol 129 mg/dL (5-100) H 03/01/18 09:10 HDL Cholesterol 35 mg/dL (40-60) L 03/01/18 09:10 TSH 0.19 uIU/ml (0.358-3.74) L 03/01/18 09:10 Current Medications Generic Name Dose Route Start Last Admin Trade Name Freq PRN Reason Stop Dose Admin Amoxicillin/Clavulanate Potassium 1 tab 03/03/18 17:30 Augmentin - 500mg Tablet PO BID@0800,1730 [facility] Bupropion HCl 150 mg 03/01/18 10:00 03/02/18 11:12 Wellbutrin Xl - PO 150 mg DAILY TD Administration Calcium Carbonate/Cholecalciferol 1 tab 03/01/18 10:00 03/02/18 11:05 Os-Derrick 500+D - PO 1 tab DAILY TD Administration Cholecalciferol 5,000 unit 03/01/18 10:00 03/02/18 11:11 Vitamin D3 - PO 5,000 unit DAILY TD Administration Cyclobenzaprine HCl 10 mg 02/28/18 22:00 03/02/18 22:07 Flexeril - PO 10 mg BID TD Administration Docusate Sodium 100 mg 03/02/18 14:00 03/03/18 05:32 Colace - PO 100 mg TID TD Administration Guaifenesin 10 ml 02/28/18 20:49 03/01/18 10:40 Robitussin - PO 10 ml Q6H PRN Administration COUGH Levothyroxine Sodium 50 mcg 03/03/18 07:00 03/03/18 06:16 Synthroid - PO 50 mcg DAILY@0700 TD Administration Lorazepam 1 mg 02/28/18 22:00 03/03/18 05:32 Ativan - PO 1 mg TID TD Administration Morphine Sulfate 2 mg 02/28/18 20:49 03/02/18 22:17 Morphine Sulfate SQ 2 mg Q6H PRN Administration PAIN LEVEL 7 - 10 Non-Formulary Medication 1 drop 02/28/18 22:00 Cyclosporine [Restasis] OU BID TD Polyethylene Glycol 17 gm 03/02/18 13:45 03/02/18 14:56 Miralax (For Daily Use) - PO 17 gm DAILY TD Administration Rosuvastatin Calcium 5 mg 02/28/18 22:00 03/02/18 22:08 Crestor - PO 5 mg HS TD Administration Senna 2 tab 03/02/18 13:10 Senna - PO HS PRN CONSTIPATION Sumatriptan Succinate 25 mg 02/28/18 20:49 Imitrex - PO DAILY PRN HEADACHE Tramadol HCl 50 mg 02/28/18 20:49 Ultram - PO Q6H PRN PAIN LEVEL 4 - 6 AP; Vertebral fractures s/p Kyphoplasty osteoporosis Hypothyroidism Anxiety TSH 0.19 LT4 50 mcg QD, this was the dose pt was on before change to Armor thyroid Bone density done on 07.06.17 at [place] [facility] shows Lumbar spine T score of -3.2, Femoral neck -2.4 and Total Hip -1.6. Compared with one from 7.6.15: 22.9% decrease in BMD of lumbar spine Treatment options including Forteo injections discussed. Pt agrees to do it. Not available in hospital pharmacy. Will try to authorization as outpt. Side effects including rare osteosarcoma discussed. Pt has no h/o of bone mets or radiation therapy to bone. No h/o paget's disese D/c Armor Thyroid Will F/U
--- NOTE | 2018-03-03 09:21 | DS ---
Physical Exam: SUBJECTIVE: Patient seen and examined at the bedside. For discharge today to rehab. OBJECTIVE: Vital Signs Period Temp Pulse Resp BP Sys/Fitzpatrick Pulse Ox Last 24 Hr 97.9 F-98.5 F 88-112 18-20 109-128/75-82 95 PHYSICAL EXAM GENERAL: The patient is awake, alert, and fully oriented, in no acute distress. HEAD: Normal with no signs of trauma. EYES: PERRL, extraocular movements intact, sclera anicteric, conjunctiva clear. No ptosis. ENT: Ears normal, nares patent, oropharynx clear without exudates, moist mucous membranes. NECK: Trachea midline, full range of motion, supple. LUNGS: Breath sounds equal, clear to auscultation bilaterally, no wheezes HEART: sinus tachycardia noted by auscultation, confirmed with EKG ABDOMEN: Soft, nontender, nondistended, normoactive bowel sounds, no guarding, no rebound, no hepatosplenomegaly, no masses. EXTREMITIES: no edema. NEUROLOGICAL: Normal speech, gait not observed. PSYCH: Normal mood, normal affect. SKIN: Warm, dry, normal turgor, no rashes or lesions noted LABS Laboratory Results - last 24 hr 03/02/18 03/02/18 03/02/18 09:45 09:45 16:29 WBC 9.1 RBC 3.61 Hgb 11.4 Hct 34.0 MCV 94.1 MCH 31.6 MCHC 33.5 RDW 16.0 H Plt Count 181 MPV 6.8 L Absolute Neuts (auto) 7.1 Neutrophils % 77.7 Neutrophils % (Manual) 76.5 Band Neutrophils % 1.0 Lymphocytes % 11.5 D Lymphocytes % (Manual) 12.7 Monocytes % 8.8 Monocytes % (Manual) 7 Eosinophils % 1.6 D Eosinophils % (Manual) 1.0 Basophils % 0.4 D Basophils % (Manual) 0.0 Myelocytes % (Man) 0 Promyelocytes % (Man) 0 Blast Cells % (Manual) 0 Nucleated RBC % 0 Metamyelocytes 1 Hypochromia 0 Platelet Estimate Normal Polychromasia 0 Poikilocytosis 0 Anisocytosis 1+ Microcytosis 0 Macrocytosis 1+ Sodium 147 H Potassium 3.0 L 3.3 L Chloride 111 H Carbon Dioxide 26 Anion Gap 10 BUN 13 Creatinine 0.5 L Creat Clearance w eGFR > 60 Random Glucose 90 Calcium 7.6 L Magnesium 1.9 Total Bilirubin 0.3 D AST 20 ALT 25 Alkaline Phosphatase 200 H Total Protein 5.3 L Albumin 2.5 L 03/03/18 07:00 WBC 8.3 RBC 3.83 Hgb 12.1 Hct 35.8 MCV 93.6 MCH 31.6 MCHC 33.7 RDW 16.3 H Plt Count 178 MPV 6.7 L Absolute Neuts (auto) 5.7 Neutrophils % 69.0 Neutrophils % (Manual) Band Neutrophils % Lymphocytes % 17.6 D Lymphocytes % (Manual) Monocytes % 9.2 Monocytes % (Manual) Eosinophils % 3.3 D Eosinophils % (Manual) Basophils % 0.9 Basophils % (Manual) Myelocytes % (Man) Promyelocytes % (Man) Blast Cells % (Manual) Nucleated RBC % 0 Metamyelocytes Hypochromia Platelet Estimate Polychromasia Poikilocytosis Anisocytosis Microcytosis Macrocytosis Sodium Potassium Chloride Carbon Dioxide Anion Gap BUN Creatinine Creat Clearance w eGFR Random Glucose Calcium Magnesium Total Bilirubin AST ALT Alkaline Phosphatase Total Protein Albumin HOSPITAL COURSE: Date of Admission:02/28/18 Date of Discharge: 03/03/18 ASSESSMENT/PLAN: Patient is a 62 year old female with a significant past medical history of anxiety, hyperlipidemia, hypothyroidism, breast cancer (17 years ago) s/p right lumpectomy, osteoporosis, hysterectomy, kyphoplasty T9-T10 fracture ( 2 weeks ago), who presents to the ED with back pain. She states that 2 weeks ago she had Kyphoplasty on T9 and T10 fractures. She normally ambulates with a walker but unable to get out of bed due to her back pain. Imaging: MRI thoracic spine w/o contrast: T10 mild recent compression deformity of the superior endplate with bone marrow edema. Posterior cortex is intact. No evidence of retropulsion. Cardiology: Tachycardia, resolved EKG with sinus tachycardia. Patient has been with tachycardia since admission. Tachycardia likely secondary to acute back pain, UTI. Patient also has history of anxiety. Currently on pain regimen with morphine. Potassium repleted , started on Ceftriaxone for UTI (day #3), Denies chest pain, denies shortness of breath. Denies any etoh or substance abuse. HLD, chronic Lipid panel in am. Back Pain Vertebral fractures s/p Kyphoplasty, POD #3 Physical therapy at [facility] arranged Incentive Spirometer to continue For Forteo injections as outpatient per Dr. DESAI: UTI + ecoli Given 3 doses of Ceftriaxone during admission Changed to Augmentin x 4 more days Repeat UA/UC outpatient Psyche On Ativan for anxiety disorder. Mildly anxious on exam. 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 full code. Minutes to complete discharge: 60 Discharge Summary Reason For Visit: BACK PAIN Current Active Problems Back pain (Acute) Condition: Improved - Instructions Diet, Activity, Other Instructions: Discharge to rehab continue Augmentin for UTi for 4 more days (twice per day). Repeat Urine cultures after completion of antibiotics. Referrals: Olman Castillo MD [Staff Physician] - 1 Week Disposition: SNF FACILITY - Home Medications Comprehensive Discharge Medication List: Ambulatory Orders Bupropion HCl [Wellbutrin Sr] 150 mg PO DAILY 02/25/18 Cyclobenzaprine HCl [Flexeril 10 mg] 10 mg PO BID PRN 02/25/18 Lorazepam [Ativan] 1 mg PO TID 02/25/18 Rosuvastatin Calcium [Crestor] 5 mg PO HS 02/25/18 Thyroid,Pork [[place] Thyroid] 30 mg PO DAILY 02/25/18 Tramadol HCl 50 mg PO PRN PRN 02/25/18 Cyclobenzaprine HCl [Flexeril -] 10 mg PO PRN 02/26/18 Sumatriptan Succinate [Imitrex] 25 mg PO PRN PRN 02/26/18 Cyclosporine [Restasis] 1 drop OU BID 02/27/18 Estradiol [Estring] 1 each VG ASDIR 02/27/18 Patient's Own Medication [Patient's Own Med (Nf) -] 2 each PO BID 02/27/18 Patient's Own Medication [Patient's Own Med (Nf) -] 5,000 each PO DAILY This patient is new to me today: No Emergency Visit: Yes ED Registration Date: 02/28/18 Care time: The patient presented to the Emergency Department on the above date and was hospitalized for further evaluation of their emergent condition. Critical Care patient: No - Discharge Referral Referred to [facility] Med P.C.: No
[2018-03-03] MEDS: CYCLOBENZAPRINE HCL 10 MG TABLET (FP) PO SCH (09:23)
[2018-03-03] MEDS: CALCIUM 500MG/VIT-D 200 UNITS COMBO TABLET (FP) PO SCH (09:24)
[2018-03-03] MEDS: POLYETHYLENE GLYCOL 3350 119 GM BTL PO SCH (09:24)
[2018-03-03] MEDS: CHOLECALCIFEROL (VITAMIN D3) 1,000 UNIT TABLET (FP) PO SCH (09:25)
[2018-03-03 09:38] LABS: PLATELET ESTIMATE NORMAL
[2018-03-03 12:06] LABS: ALBUMIN 2.7 g/dl (3.4-5.0); ANION GAP 9 (8-16); BILIRUBIN,TOTAL 0.3 mg/dL (0.2-1.0); BLOOD UREA NITROGEN 12 mg/dL (7-18); CALCIUM 8.1 mg/dL (8.5-10.1); CHLORIDE 110 mmol/L (98-107); CO2 24 mmol/L (21-32); CREATININE 0.5 mg/dL (0.55-1.02); GLUCOSE,RANDOM 71 mg/dL (74-106); POTASSIUM 4.2 mmol/L (3.5-5.1); SGOT/AST 17 U/L (15-37); SGPT/ALT 26 U/L (12-78); SODIUM 143 mmol/L (136-145); TOT PROT 5.6 g/dl (6.4-8.2)
[2018-03-03 12:08] LABS: ALK PHOS 204 U/L (45-117); MAGNESIUM 2.3 mg/dL (1.8-2.4)
[2018-03-03 15:53] VITALS: BP 120/75; PULSE 129; TEMP 98.5
[2018-03-03] MEDS ORDERED: AMOX TR/POT CLAV 500MG/125MG TABLETS (FP) PO SCH (17:30)
== END 2018-03-03 16:22 | DRG 478 ==
LOC: JER 11:39 → JERBED 18:08 → J8W 20:16 → OBSVTOIN 02-28 14:12
PROVIDERS: ADMIT Internal Medicine; ATTEND Nurse Practitioner Family
PROC: 0PS43ZZ Reposition Thoracic Vertebra, Percutaneous Approach (ICD-10-PCS; 2018-02-28)
PROC: 0PU43JZ Supplement Thoracic Vertebra with Synthetic Substitute, Percutaneous Approach (ICD-10-PCS; 2018-02-28)
PROC: 0P943ZX Drainage of Thoracic Vertebra, Percutaneous Approach, Diagnostic (ICD-10-PCS; principal; 2018-02-28 18:30)
DX: M80.88XA Other osteoporosis with current pathological fracture, vertebra(e), initial encounter for fracture (principal); N39.0 Urinary tract infection, site not specified; B96.29 Other Escherichia coli [E. coli] as the cause of diseases classified elsewhere; E87.6 Hypokalemia; F41.9 Anxiety disorder, unspecified; E03.9 Hypothyroidism, unspecified; E78.5 Hyperlipidemia, unspecified; Z85.3 Personal history of malignant neoplasm of breast; Z90.710 Acquired absence of both cervix and uterus
CPT/HCPCS: 36415; 72128-TC; 72131-TC; 72146-TC; 72148-TC; 76000-TC-FY; 80048; 80053; 80061; 81003; 81015; 83605; 83721; 83735; 84100; 84132; 84443; 85025; 85610; 85730; 86850; 86900; 86901; 87086; 87186; 88305-TC; 88311-TC; 93005; 93010; 94010; 94640; 94760; 97116-GP; 97161-GP; 99283-25; G0378; J0131; J7030

== ENCOUNTER 2018-09-11 16:39 | Observation (INO) | payer OTHER ==
--- NOTE | 2018-09-11 16:46 | PDOC ---
Rapid Medical Evaluation Medical Evaluation: Allergies Allergy/AdvReac Type Severity Reaction Status Date / Time fluconazole [From Diflucan] Allergy Verified 03/29/18 09:42 prochlorperazine Allergy Verified 03/29/18 09:42 [From Compazine] 09/11/18 16:41 I have performed a brief in-person evaluation of this patient. The patient presents with a chief complaint of: "I have a DVT". pt with positive DVT right leg. Pertinent physical exam findings:pain and swelling right inner thigh to knee. no history of DVT. I have ordered the following:cbc, cmp, inr, ptt, The patient will proceed to the ED for further evaluation. Discharge Disposition - Diagnosis Dvt femoral (deep venous thrombosis) - Discharge Dispostion Disposition: HOME Condition at time of disposition: Good - Prescriptions - Referrals - Patient Instructions - Post Discharge Activity
[2018-09-11 16:58] LABS: HEMATOCRIT 44.3 % (32.4-45.2); HEMOGLOBIN 14.5 GM/dL (10.7-15.3); MCH 30.6 pg (25.7-33.7); MCHC 32.8 g/dl (32.0-36.0); MEAN CELL VOLUME 93.4 fl (80-96); MEAN PLT VOLUME 6.6 fl (7.5-11.1); PLATELET COUNT 257 K/MM3 (134-434); RBC 4.74 M/mm3 (3.60-5.2); RDW 16.1 % (11.6-15.6); WHITE BLOOD COUNT 15.9 K/mm3 (4.0-10.0)
[2018-09-11 17:12] LABS: PROTHROMBIN TIME (PATIENT) 11.8 SEC (9.7-13.0)
[2018-09-11 17:15] LABS: ACTIVATED PTT 25.2 SECONDS (25.2-36.5)
[2018-09-11 17:22] LABS: ALBUMIN 3.7 g/dl (3.4-5.0); ALK PHOS 97 U/L (45-117); ANION GAP 11 MMOL/L (8-16); BILIRUBIN,TOTAL 0.3 mg/dL (0.2-1); BLOOD UREA NITROGEN 33 mg/dL (7-18); CALCIUM 9.6 mg/dL (8.5-10.1); CHLORIDE 107 mmol/L (98-107); CO2 22 mmol/L (21-32); CREATININE 0.9 mg/dL (0.55-1.3); GLUCOSE,RANDOM 168 mg/dL (74-106); POTASSIUM 3.7 mmol/L (3.5-5.1); SGOT/AST 12 U/L (15-37); SGPT/ALT 28 U/L (13-61); SODIUM 140 mmol/L (136-145); TOT PROT 6.9 g/dl (6.4-8.2)
--- NOTE | 2018-09-11 19:01 | PDOC ---
History of Present Illness - General Chief Complaint: Revisit,Radiology Variance Stated Complaint: DVT Time Seen by Provider: 09/11/18 18:26 History Source: Patient Exam Limitations: No Limitations - History of Present Illness Initial Comments: Georgette is a 62 yo F w a sig pmh of HLD, hypothyroidism, breast cancer (17 years ago) s/p right lumpectomy, osteoporosis, hysterectomy, Kyphoplasty T9-T10 fracture (2 back surgeries on february 2018), anxiety, depression who presents to the ED stating she has a DVT. She was at [facility] earlier today where they diagnosed her with a New DVT involving the common femoral, femoral, ad proximal popliteal veins. Also has a new occlusive thrombus in a portion of the greater saphenous vein. She has the document which shows the read with her. She was sent here from the imaging clinic to have her DVT treated. She states she is not currently on any blood thinners. ' DVT risk factors: past cancer, significant immoblity. She denies chest pain, SOB, cough, difficulty breathing, recent fevers, chills, infections, dysuria, frequency, urgency. PCP: Stu Gonsales PSH: Arthroscopy of right shoulder, Lumpectomy, hysterectomy, kyphoplasty Social Hx: Former Smoker, recreational drinker, denies other substance usage. Allergies: Fluconazole, prochlorperazine Past History - Past Medical History Allergies/Adverse Reactions: Allergies Allergy/AdvReac Type Severity Reaction Status Date / Time fluconazole [From Diflucan] Allergy Verified 09/11/18 16:41 prochlorperazine Allergy Verified 09/11/18 16:41 [From Compazine] Home Medications: Ambulatory Orders Bupropion HCl [Wellbutrin Sr] 150 mg PO DAILY 02/25/18 Lorazepam [Ativan] 1 mg PO TID 02/25/18 Rosuvastatin Calcium [Crestor] 10 mg PO HS 02/25/18 Cyclobenzaprine HCl [Flexeril -] 10 mg PO PRN 02/26/18 Sumatriptan Succinate [Imitrex -] 25 mg PO PRN PRN 02/26/18 Cyclosporine [Restasis] 1 drop OU BID 02/27/18 Docusate Sodium [Colace -] 100 mg PO TID capsule 03/03/18 Levothyroxine [Synthroid -] 50 mcg PO DAILY@0700 tablet 03/03/18 Polyethylene Glycol 3350 [Miralax 119 gm Btl -] 17 gm PO DAILY bottle 03/03/18 Sennosides [Senna -] 2 tab PO HS PRN tablet 03/03/18 Cholecalciferol (Vitamin D3) [Vitamin D3 -] 5,000 unit PO DAILY 09/11/18 Cancer: Yes (RIGHT BREAST LUMECTOMY) COPD: No Disorders: Yes (URINE RETENTION) Hypercholesterolemia: Yes Thyroid Disease: Yes (HYPOTHYROIDISM) Other medical history: spine fx 03/29 - Surgical History Orthopedic Surgery: Yes (Right shoulder) - Immunization History Immunization Up to Date: Yes - Suicide/Smoking/Psychosocial Hx Smoking History: Former smoker Have you smoked in the past 12 months: No Information on smoking cessation initiated: No Hx Alcohol Use: No Drug/Substance Use Hx: No Substance Use Type: None Hx Substance Use Treatment: No Review of Systems - Review of Systems Able to Perform ROS?: Yes Comments:: CONSTITUTIONAL: Absent: fever, no chills, no fatigue EYES: Absent: visual changes ENT: Absent: ear pain, no sore throat CARDIOVASCULAR: Absent: chest pain, no palpitations RESPIRATORY: Absent: cough, no SOB GI: Absent: abdominal pain, no nausea, no vomiting, no constipation, no diarrhea GENITOURINARY: Absent: dysuria, no frequency, no hematuria MUSKULOSKELETAL: Present: Back pain Absent: no arthralgia, no myalgia SKIN: Present: rash NEURO: Absent: headache *Physical Exam - Vital Signs Last Vital Signs Temp Pulse Resp BP Pulse Ox 98 F 113 H 18 135/71 97 09/11/18 16:40 09/11/18 16:40 09/11/18 16:40 09/11/18 16:40 09/11/18 16:40 - Physical Exam Comments: GENERAL: Well-appearing, well-nourished. No apparent distress. HEENT: Normocephalic, atraumatic. PERRL, EOM intact. CARDIOVASCULAR: Normal S1, S2. Tachycardic rate and regular rhythm. PULMONARY: Clear to auscultation bilaterally. ABDOMEN: Soft, non-distended, non-tender. RIGHT LEG: The inner thigh is erythematous and Tender to palpation. Negative allyn sign. EXTREMITIES: Normal ROM in all four extremities. SKIN: Warm, dry. NEUROLOGICAL: No focal neurological deficits. Moderate Sedation - Procedure Monitoring Vital Signs: Procedure Monitoring Vital Signs Temperature 98 F 09/11/18 16:40 Pulse Rate 113 H 09/11/18 16:40 Respiratory Rate 18 09/11/18 16:40 Blood Pressure 135/71 09/11/18 16:40 O2 Sat by Pulse Oximetry (%) 97 09/11/18 16:40 ED Treatment Course - LABORATORY CBC & Chemistry Diagram: 09/11/18 16:52 09/11/18 16:52 - ADDITIONAL ORDERS Additional order review: Laboratory Results 09/11/18 09/11/18 16:52 16:52 PT with INR 11.80 INR 1.00 PTT (Actin FS) 25.2 Sodium 140 Potassium 3.7 Chloride 107 Carbon Dioxide 22 Anion Gap 11 BUN 33 H Creatinine 0.9 Creat Clearance w eGFR > 60 Random Glucose 168 H Calcium 9.6 Total Bilirubin 0.3 AST 12 L ALT 28 Alkaline Phosphatase 97 Total Protein 6.9 Albumin 3.7 09/11/18 16:52 RBC 4.74 MCV 93.4 MCHC 32.8 RDW 16.1 H MPV 6.6 L Medical Decision Making - Medical Decision Making Georgette is a 62 yo F w a sig pmh of HLD, hypothyroidism, breast cancer (17 years ago) s/p right lumpectomy, osteoporosis, hysterectomy, Kyphoplasty T9-T10 fracture (2 back surgeries on february 2018), anxiety, depression who presents to the ED with a DVT DDx IBNLT: DVT, PE, cellulitis. Plan: Labs, CTA, DVT treatment. CTA came back negative and did not show any evidence of PE. Heart rate was originally tachycardic to 116 BUN/Cr 33/0.9 > 20:1 ration support that she is fluid depleted and is pre-renal kidney injury. - Will admit patient to hospital for start of DVT treatment given extensive DVT all the way up to the femoral vein, immobile nature of patient, high risk patient, and tendency to bleed easily. - Will do rectal exam and if heme occult negative will start treatment with Lovenox in the ED. - Heme occult negative - 60 mg lovenox ordered. - Will admit for further care and observation. *DC/Admit/Observation/Transfer Diagnosis at time of Disposition: Dvt femoral (deep venous thrombosis) - Discharge Dispostion Decision to Admit order: Yes - Referrals Referrals: Stu Gonsales MD [Primary Care Provider] - - Patient Instructions - Post Discharge Activity
[2018-09-11] MEDS ORDERED: SODIUM CHLORIDE 0.9% 500 ML INFUS.BAG IV ONE ×2 (19:13→21:11)
--- NOTE | 2018-09-11 21:30 | PDOC ---
History of Present Illness - General Chief Complaint: Revisit,Radiology Variance Stated Complaint: DVT Time Seen by Provider: 09/11/18 18:26 Past History - Past Medical History Allergies/Adverse Reactions: Allergies Allergy/AdvReac Type Severity Reaction Status Date / Time fluconazole [From Diflucan] Allergy Verified 09/11/18 16:41 prochlorperazine Allergy Verified 09/11/18 16:41 [From Compazine] Home Medications: Ambulatory Orders Bupropion HCl [Wellbutrin Sr] 150 mg PO DAILY 02/25/18 Lorazepam [Ativan] 1 mg PO TID 02/25/18 Rosuvastatin Calcium [Crestor] 10 mg PO HS 02/25/18 Cyclobenzaprine HCl [Flexeril -] 10 mg PO PRN 02/26/18 Sumatriptan Succinate [Imitrex -] 25 mg PO PRN PRN 02/26/18 Cyclosporine [Restasis] 1 drop OU BID 02/27/18 Docusate Sodium [Colace -] 100 mg PO TID capsule 03/03/18 Levothyroxine [Synthroid -] 50 mcg PO DAILY@0700 tablet 03/03/18 Polyethylene Glycol 3350 [Miralax 119 gm Btl -] 17 gm PO DAILY bottle 03/03/18 Sennosides [Senna -] 2 tab PO HS PRN tablet 03/03/18 Cholecalciferol (Vitamin D3) [Vitamin D3 -] 5,000 unit PO DAILY 09/11/18 Cancer: Yes (RIGHT BREAST LUMECTOMY) COPD: No Disorders: Yes (URINE RETENTION) Hypercholesterolemia: Yes Thyroid Disease: Yes (HYPOTHYROIDISM) Other medical history: spine fx 03/29 - Surgical History Orthopedic Surgery: Yes (Right shoulder) - Immunization History Immunization Up to Date: Yes - Suicide/Smoking/Psychosocial Hx Smoking History: Former smoker Have you smoked in the past 12 months: No Information on smoking cessation initiated: No Hx Alcohol Use: No Drug/Substance Use Hx: No Substance Use Type: None Hx Substance Use Treatment: No *Physical Exam - Vital Signs Last Vital Signs Temp Pulse Resp BP Pulse Ox 98 F 113 H 18 135/71 97 09/11/18 16:40 09/11/18 16:40 09/11/18 16:40 09/11/18 16:40 09/11/18 16:40 Moderate Sedation - Procedure Monitoring Vital Signs: Procedure Monitoring Vital Signs Temperature 98 F 09/11/18 16:40 Pulse Rate 113 H 09/11/18 16:40 Respiratory Rate 18 09/11/18 16:40 Blood Pressure 135/71 09/11/18 16:40 O2 Sat by Pulse Oximetry (%) 97 09/11/18 16:40 ED Treatment Course - LABORATORY CBC & Chemistry Diagram: 09/11/18 16:52 09/11/18 16:52 - ADDITIONAL ORDERS Additional order review: Laboratory Results 09/11/18 09/11/18 16:52 16:52 PT with INR 11.80 INR 1.00 PTT (Actin FS) 25.2 Sodium 140 Potassium 3.7 Chloride 107 Carbon Dioxide 22 Anion Gap 11 BUN 33 H Creatinine 0.9 Creat Clearance w eGFR > 60 Random Glucose 168 H Calcium 9.6 Total Bilirubin 0.3 AST 12 L ALT 28 Alkaline Phosphatase 97 Total Protein 6.9 Albumin 3.7 09/11/18 16:52 RBC 4.74 MCV 93.4 MCHC 32.8 RDW 16.1 H MPV 6.6 L - Medications Given in the ED: ED Medications Discontinued Medications Generic Name Dose Route Start Last Admin Trade Name Freq PRN Reason Stop Dose Admin Sodium Chloride 1,000 ml 09/11/18 19:13 09/11/18 20:03 Normal Saline - IV 09/11/18 19:14 1,000 ml ONCE ONE Administration *DC/Admit/Observation/Transfer Diagnosis at time of Disposition: DVT (deep venous thrombosis) - Referrals Referrals: Stu Gonsales MD [Primary Care Provider] - - Patient Instructions - Post Discharge Activity
--- NOTE | 2018-09-11 21:53 | PDOC ---
Attending Attestation - HPI HPI: 09/11/18 21:55 The patient is a 63-year-old female with a past medical history significant for Breast CA s/p lumpectomy, Kyphoplasty T9-T10 (back surgery), HTN, HLD presents to the emergency department s/p DVT diagnosis earlier today. The patient reports she was at an imaging clinic in [place], where ultrasound imaging was remarkable for DVT in the R. femoral, popliteal vein and a new occlusive thrombus in the greater saphenous vein. The patient reports she was sent from the clinic to the ER for further treatment. At baseline, the patient is minimally ambulatory. Denies the use of AC or blood thinners. Denies a cough, chest pain or shortness of breath. Denies calf pain or swelling. Allergies: Fluconazole, prochlorperazine Social history: Former smoker, +alcohol use, no recreational drug use. PCP: Dr. Vee Peraza. - Physicial Exam PE: 09/11/18 21:57 Vitals: Triage vital signs reviewed General Appearance: No acute distress, well nourished, well developed Head: Atraumatic Neck: Supple; No nuchal rigidity Chest Wall: Nontender Cardiac: Regular rate and rhythm, no murmurs, no rubs, no gallops Lungs: Clear to auscultation bilateral, good air movement bilaterally Abdomen: Soft, nondistended, nontender to palpation Extremities: +swelling to the right lower extremity. Full range of motion to all extremities, no cyanosis, clubbing. Skin: Warm and dry, no rashes or lesions, no rash, no petechiae - Medical Decision Making 09/11/18 21:54 The patient is a 63-year-old female with a past medical history significant for Breast CA s/p lumpectomy, Kyphoplasty T9-T10 (back surgery), HTN, HLD presents to the emergency department s/p DVT diagnosis earlier today. The patient reports she was at an imaging clinic in [place], where ultrasound imaging was remarkable for DVT in the R. femoral, popliteal vein and a new occlusive thrombus in the greater saphenous vein. The patient reports she was sent from the clinic to the ER for further treatment. At baseline, the patient is minimally ambulatory. Denies the use of AC or blood thinners. Denies a cough, chest pain or shortness of breath. Denies calf pain or swelling. Plan: CBC, CMP, INR, PTT, Chest CTA. Update PCP. Lovenox Admit to the hospital for DVT treatment. Phone Calls: Call placed to PCP (Dr. Peraza) at 9:21. Spoke with the service, waiting for a call back. Case discussed with the oncall doctor Dr. Seals at 9:28 pm. Call was disconnected at 9:35. Second call to 9:36, trying to reach oncall doctor. Case discussed with oncall doctor at 9:40 pm. Microblog sent for admission. Chest CTA: No CT evidence of Pulmonary embolism. <Christina Marti - Last Filed: 09/11/18 21:57> - Resident Resident Name: Jn Kay - ED Attending Attestation I have performed the following: I have examined & evaluated the patient, The case was reviewed & discussed with the resident, I agree w/resident's findings & plan, Exceptions are as noted - Medical Decision Making Very extensive DVT all the way up to the iliofemoral area CTA with no evidence of PE Given that patient is largely mobilize, cancer patient with extensive DVT we'll observe overnight with IM Lovenox heme in consultation for further management. <Miguelito Tomas - Last Filed: 09/11/18 23:00>
[2018-09-11] MEDS ORDERED: ENOXAPARIN NA (PORCINE) 60 MG/0.6 ML DISP.SYRIN SQ SCH ×3 (22:00→22:15)
[2018-09-11] MEDS ORDERED: ENOXAPARIN NA (PORCINE) 60 MG/0.6 ML DISP.SYRIN SQ ONE (23:30)
--- NOTE | 2018-09-12 00:40 | HP ---
CHIEF COMPLAINT: DVT PCP: HISTORY OF PRESENT ILLNESS: 63 y/o F with PMHx of Hypothyroidism, Breast Ca (s/p R Lumpectomy, Tamoxifen use [id number]) presents after visiting [place] imaging found to have DVT involving the common formoral, Femoral and proximval veins. Patient woke Tuesday symptom free and noticed a tender area on her R Medial thigh posteriorly with overlying erythema. Her family encouarged her to have imaging done however she was unable to do so until 09/11. This is the first time she has had a blood clot. She denies any hx of blood clot or any recent trauma, surgeries, travel. Patient [place] drives to [place], approx [address] and says this is not new. Her only recent medication changes include increasing her Crestor dose and addition of Folic acid. Patient has used warm compresses with some relief; Otherwise she is unable to identify any relieving or exacerbating factors. Denies any accompanying Chest pain, SOB, fevers, chills, nausea, vomiting, diarrhea, constipation, numbness tingling, headaches, vision changes. ER course was notable for: (1) (2) (3) Recent Travel: Denies PAST MEDICAL HISTORY: HLD, Hypothyroidism, Osteoporosis, Anxiety, Depression, Breast Ca (dx 17 years ago s/p 6 month Chemotherapy, 6 week Radiation, R Lumpectomy, Tamoxifen use 2001 -2006) PAST SURGICAL HISTORY: R Lumpectomy Hysterectomy T9-T10 Kyphoplasty (2018) R Shoulder Arthroscopy Social History: Smoking: Quit 34 years ago; Smoked 1ppd x 14 years prior Alcohol: Ocassional Drugs: CBD Oil use for anxiety Occupation: Retired Ambulation: without assitance Residence: Lives at home Family History: Mother: Heart Disease, Breast Ca Father: Liver Ca, Gauchers disease Allergies fluconazole [From Diflucan] Allergy (Verified 09/11/18 16:41) prochlorperazine [From Compazine] Allergy (Verified 09/11/18 16:41) HOME MEDICATIONS: Home Medications Medication Instructions Recorded Bupropion HCl [Wellbutrin Sr] 150 mg PO DAILY 02/25/18 Lorazepam [Ativan] 1 mg PO TID 02/25/18 Rosuvastatin Calcium [Crestor] 10 mg PO HS 02/25/18 Cyclobenzaprine HCl [Flexeril -] 10 mg PO PRN 02/26/18 Sumatriptan Succinate [Imitrex -] 25 mg PO PRN PRN 02/26/18 Cyclosporine [Restasis] 1 drop OU BID 02/27/18 Docusate Sodium [Colace -] 100 mg PO TID capsule 03/03/18 Levothyroxine [Synthroid -] 50 mcg PO DAILY@0700 tablet 03/03/18 Polyethylene Glycol 3350 [Miralax 17 gm PO DAILY bottle 03/03/18 119 gm Btl -] Sennosides [Senna -] 2 tab PO HS PRN tablet 03/03/18 Cholecalciferol (Vitamin D3) 5,000 unit PO DAILY 09/11/18 [Vitamin D3 -] REVIEW OF SYSTEMS As per HPI PHYSICAL EXAMINATION Vital Signs - 24 hr 09/11/18 09/11/18 16:40 21:00 Temperature 98 F 98.8 F Pulse Rate 113 H Pulse Rate [ 92 H Apical] Respiratory 18 18 Rate Blood Pressure 135/71 Blood Pressure 126/78 [Left Arm] O2 Sat by Pulse 97 100 Oximetry (%) GENERAL: A&Ox3, NAD HEAD: NCAT EYES: PERRL, EOMI EARS, NOSE, THROAT: Moist mucous membranes. NECK: No JVD LUNGS: CTA B/L, No wheezes, no crackles HEART: Regular rate and rhythm, normal S1 and S2 without murmur ABDOMEN: Soft, nontender, not distended, + bowel sounds, no guarding EXTREMITIES: 2+ pulses, No peripheral edema. 4x3cm area of erythema over the Right medial thigh posteriorly that is warm and tender to palpation without any drainage. NEUROLOGICAL: Cranial nerves II-XII intact. Normal speech. L4-S1 gross sensation intact. 5/5 muscle strength to Hip flexion, Knee flexion/extension, plantarflexion and dorsiflexion SKIN: Warm, dry Laboratory Results - last 24 hr 09/11/18 09/11/18 09/11/18 16:52 16:52 16:52 WBC 15.9 H RBC 4.74 Hgb 14.5 Hct 44.3 MCV 93.4 MCH 30.6 MCHC 32.8 RDW 16.1 H Plt Count 257 D MPV 6.6 L PT with INR 11.80 INR 1.00 PTT (Actin FS) 25.2 Sodium 140 Potassium 3.7 Chloride 107 Carbon Dioxide 22 Anion Gap 11 BUN 33 H Creatinine 0.9 Creat Clearance w eGFR > 60 Random Glucose 168 H Calcium 9.6 Total Bilirubin 0.3 AST 12 L ALT 28 Alkaline Phosphatase 97 Total Protein 6.9 Albumin 3.7 Stool Occult Blood 09/11/18 21:52 WBC RBC Hgb Hct MCV MCH MCHC RDW Plt Count MPV PT with INR INR PTT (Actin FS) Sodium Potassium Chloride Carbon Dioxide Anion Gap BUN Creatinine Creat Clearance w eGFR Random Glucose Calcium Total Bilirubin AST ALT Alkaline Phosphatase Total Protein Albumin Stool Occult Blood Negative ASSESSMENT/PLAN: 63 y/o F with PMHx of Hypothyroidism, Breast Ca (s/p R Lumpectomy, Tamoxifen use [id number]) presents with DVT #DVT -Unclear Etiology however Past risk factors include hx of Breast Ca -RLE Duplex at [place] imaging found to have DVT involving the common formoral , Femoral and proximval veins and new occlusive thrombus of a portion of the greater saphenous vein -CTA Angio showed no evidence for PE -Continue Lovenox 60mg BID (1mg/kg) -Hematology (Dr. Deleon) consult -Will need Echo before starting DOAC #Elevated Blood Glucose -A1c pending -Can consider BGMs ISS pending A1c #FEN -PO Fluids -Lytes WNL -Sodium controlled diet #PPx -DVT: Lovenox Dispo: Obs med-Surg, Will need Med Rec Visit type - Emergency Visit Emergency Visit: Yes ED Registration Date: 09/11/18 Care time: The patient presented to the Emergency Department on the above date and was hospitalized for further evaluation of their emergent condition. - New Patient This patient is new to me today: Yes Date on this admission: 09/13/18 - Critical Care Critical Care patient: No
--- NOTE | 2018-09-12 00:44 | PN ---
Teaching Attending Note Name of Resident: Jackson Dow ATTENDING PHYSICIAN STATEMENT I saw and evaluated the patient. I reviewed the resident's note and discussed the case with the resident. I agree with the resident's findings and plan as documented. SUBJECTIVE: Patient is a 63 year old woman with a PMH of Breast CA s/p lumpectomy, Kyphoplasty T9-T10 (back surgery), HTN and HLD who presents to the ER after a DVT diagnosis earlier today. The patient reports she was at an imaging clinic in [place], where ultrasound imaging was remarkable for DVT in the right femoral, popliteal vein and a new occlusive thrombus in the greater saphenous vein. The patient reports she was sent from the clinic to the ER for further treatment. At baseline, the patient is minimally ambulatory. Denies the use of AC or blood thinners. Denies a cough, chest pain or shortness of breath. Denies calf pain or swelling. OBJECTIVE: Alert Vital Signs Period Temp Pulse Resp BP Sys/Fitzpatrick Pulse Ox Last 24 Hr 98 F-98.8 F 92-113 18-18 126-135/71-78 97-100 HEENT: No Jaundice, eye redness or discharge, PERRLA, EOMI. Normocephalic, atraumatic. External ears are normal and hearing is grossly intact. No nasal discharge. Neck: Supple, nontender. No palpable adenopathy or thyromegaly. No JVD Chest: Good effort. Clear to auscultation and percussion. Heart: Regular. No S3, rub or murmur Abdomen: Not distended, soft, nontender and no HSM. No rebound or guarding. Normoactive bowel sounds. Ext: Peripheral pulses intact. No leg edema. Area of erythema in right lower midthigh. Skin: Warm and dry. No petechiae, rash or ecchymosis. Neuro: Alert. Oriented x3. CN 2-12 grossly intact. Sensation grossly intact in all four extremities and DTR are symmetric. Current Medications Generic Name Dose Route Start Last Admin Trade Name Freq PRN Reason Stop Dose Admin Enoxaparin Sodium 60 mg 09/11/18 22:00 09/11/18 23:54 Lovenox - SQ Not Given BID TD Enoxaparin Sodium 60 mg 09/11/18 22:15 09/11/18 23:54 Lovenox - SQ 60 mg ONCE TD Administration Home Medications Medication Instructions Recorded Bupropion HCl [Wellbutrin Sr] 150 mg PO DAILY 02/25/18 Lorazepam [Ativan] 1 mg PO TID 02/25/18 Rosuvastatin Calcium [Crestor] 10 mg PO HS 02/25/18 Cyclobenzaprine HCl [Flexeril -] 10 mg PO PRN 02/26/18 Sumatriptan Succinate [Imitrex -] 25 mg PO PRN PRN 02/26/18 Cyclosporine [Restasis] 1 drop OU BID 02/27/18 Docusate Sodium [Colace -] 100 mg PO TID capsule 03/03/18 Levothyroxine [Synthroid -] 50 mcg PO DAILY@0700 tablet 03/03/18 Polyethylene Glycol 3350 [Miralax 17 gm PO DAILY bottle 03/03/18 119 gm Btl -] Sennosides [Senna -] 2 tab PO HS PRN tablet 03/03/18 Cholecalciferol (Vitamin D3) 5,000 unit PO DAILY 09/11/18 [Vitamin D3 -] Abnormal Lab Results 09/11/18 09/11/18 16:52 16:52 WBC 15.9 H RDW 16.1 H MPV 6.6 L BUN 33 H Random Glucose 168 H AST 12 L ASSESSMENT AND PLAN: 1. Right leg DVT - Remote breast cancer and immobility are likely risk factors for VTE. No PE on CTA. Started on full dose lovenox. EKG is NSR but will monitor on telemetry. Will get ECHO before transition to a DOAC. Risks/benefits associated with anticoagulation as well as necessary precautions being discussed with patient. Consult hematology for workup to search for risk factor for VTE. 2. DVT prophylaxis - On full dose Lovenox 3. Advance directives - Full code
[2018-09-12 02:36] VITALS: BMI 25.8
[2018-09-12] MEDS ORDERED: LORazepam 1 MG TABLET PO ONE (02:46)
[2018-09-12 07:37] LABS: BASO % 0.2 % (0-2.0); EOS % 0.1 % (0-4.5); HEMATOCRIT 39.1 % (32.4-45.2); HEMOGLOBIN 12.6 GM/dL (10.7-15.3); MCH 30.5 pg (25.7-33.7); MCHC 32.3 g/dl (32.0-36.0); MEAN CELL VOLUME 94.7 fl (80-96); MONO % 5.2 % (3.8-10.2); NEUT % 86.5 % (42.8-82.8); PLATELET COUNT 209 K/MM3 (134-434); RBC 4.13 M/mm3 (3.60-5.2); RDW 16.3 % (11.6-15.6); WHITE BLOOD COUNT 11.8 K/mm3 (4.0-10.0)
[2018-09-12 08:07] LABS: ALK PHOS 74 U/L (45-117); ANION GAP 8 MMOL/L (8-16); BILIRUBIN,TOTAL 0.2 mg/dL (0.2-1); BLOOD UREA NITROGEN 23 mg/dL (7-18); CALCIUM 7.9 mg/dL (8.5-10.1); CHLORIDE 111 mmol/L (98-107); CO2 26 mmol/L (21-32); CREATININE 0.6 mg/dL (0.55-1.3); GLUCOSE,RANDOM 98 mg/dL (74-106); MAGNESIUM 2.2 mg/dL (1.8-2.4); PHOSPHOROUS 2.5 mg/dL (2.5-4.9); SGOT/AST 13 U/L (15-37); SGPT/ALT 21 U/L (13-61); SODIUM 146 mmol/L (136-145); TOT PROT 5.6 g/dl (6.4-8.2)
[2018-09-12] MEDS ORDERED: LORazepam 1 MG TABLET PO PRN (08:32)
[2018-09-12] MEDS ORDERED: SUMAtriptan SUCCINATE 25 MG TABLET PO PRN (08:32)
[2018-09-12] MEDS ORDERED: SENNOSIDES 8.6MG TABLET (FP) PO PRN (08:32)
[2018-09-12] MEDS ORDERED: LEVOTHYROXINE NA 50 MCG TABLET (FP) PO ONE (08:43)
[2018-09-12] MEDS ORDERED: CYCLOBENZAPRINE HCL 10 MG TABLET (FP) PO PRN (08:45)
[2018-09-12] MEDS ORDERED: PT OWN MED DRAWER 7, Y5N ONE (09:01)
[2018-09-12] MEDS ORDERED: POLYETHYLENE GLYCOL 3350 119 GM BTL PO SCH (10:00)
[2018-09-12] MEDS ORDERED: TERIPARATIDE SQ SCH (10:00)
[2018-09-12] MEDS ORDERED: CHOLECALCIFEROL (VITAMIN D3) 1,000 UNIT TABLET (FP) PO SCH (10:00)
[2018-09-12] MEDS ORDERED: PATIENT'S OWN MEDICATION (NON-FORMULARY) (Cyclosporine [Restasis] 1 DROP) OU SCH (10:00)
[2018-09-12] MEDS ORDERED: ENOXAPARIN NA (PORCINE) 60 MG/0.6 ML DISP.SYRIN SQ SCH (10:00)
[2018-09-12 10:15] VITALS: BP 130/84; PULSE 82; TEMP 97.6
--- NOTE | 2018-09-12 12:45 | CONSULT ---
Consult Consult Specialty:: Hematology Referred by:: Medicine Reason for Consultation:: DVT - History of Present Illness Chief Complaint: Newly diagnosed extensive RLE DVT. History of Present Illness: Reports noting are of tenderness R thigh medially, referred for imaging and found to have extensive DVT (deep and superficial system) on that side. Referred for admission due to extensiveness of clot. No complaints at this time. History of early breast cancer 17 years ago - chemotherapy and RTX - followed by TMX, and then letrozole. Severe osteoporosis complicated by vertebral fractures last year. Period of immobility several months ago, but has been mobile last several months. No recent events placing her at risk of thrombosis. No recent changes in medications. No prior history of thromboembolic events. No family history of thrombosis. Systemic inquiry unremarkable - no constitutional symptoms, or other , suggestive of recurrence of her prior cancer. - History Source History Provided By: Patient Limitations to Obtaining History: No Limitations - Past Medical History Cardio/Vascular: Yes: Hyperlipdemia ...: No Psych: Yes: Anxiety, Depression Endocrine: Yes: Hypothyroidism, Other (Osteoporosis) - Past Surgical History Past Surgical History: Yes: Arthrosocopy (r shoulder), Hysterectomy - Alcohol/Substance Use Hx Alcohol Use: No - Smoking History Smoking history: Former smoker Have you smoked in the past 12 months: No - Social History ADL: Independent Home Medications - Allergies Allergies/Adverse Reactions: Allergies Allergy/AdvReac Type Severity Reaction Status Date / Time fluconazole [From Diflucan] Allergy Verified 09/11/18 16:41 prochlorperazine Allergy Verified 09/11/18 16:41 [From Compazine] - Home Medications Home Medications: Ambulatory Orders Bupropion HCl [Wellbutrin Sr] 150 mg PO DAILY 02/25/18 Lorazepam [Ativan] 1 mg PO TID 02/25/18 Rosuvastatin Calcium [Crestor] 10 mg PO HS 02/25/18 Cyclobenzaprine HCl [Flexeril -] 10 mg PO PRN 02/26/18 Sumatriptan Succinate [Imitrex -] 25 mg PO PRN PRN 02/26/18 Cyclosporine [Restasis] 1 drop OU BID 02/27/18 Docusate Sodium [Colace -] 100 mg PO TID capsule 03/03/18 Levothyroxine [Synthroid -] 50 mcg PO DAILY@0700 tablet 03/03/18 Polyethylene Glycol 3350 [Miralax 119 gm Btl -] 17 gm PO DAILY bottle 03/03/18 Sennosides [Senna -] 2 tab PO HS PRN tablet 03/03/18 Cholecalciferol (Vitamin D3) [Vitamin D3 -] 5,000 unit PO DAILY 09/11/18 Apixaban [Eliquis -] 5 mg PO BID #100 tablet 09/12/18 Teriparatide [Forteo] 2.4 ml SQ DAILY 09/12/18 Review of Systems - Review of Systems Constitutional: reports: No Symptoms Eyes: reports: No Symptoms HENT: reports: No Symptoms Neck: reports: No Symptoms Cardiovascular: denies: Chest Pain, Shortness of Breath Respiratory: denies: Cough, Hemoptysis Gastrointestinal: denies: Abdominal Pain, Constipation, Diarrhea, Nausea, Vomiting Genitourinary: reports: No Symptoms Breasts: reports: No Symptoms Reported Musculoskeletal: reports: Back Pain Integumentary: reports: Lump (As described) Endocrine: denies: Unexplained Weight Loss Hematology/Lymphatic: reports: Easily Bruised Physical Exam Vital Signs: Vital Signs Temperature 97.6 F 09/12/18 10:00 Pulse Rate 82 09/12/18 10:00 Respiratory Rate 20 09/12/18 10:00 Blood Pressure 130/84 09/12/18 10:00 O2 Sat by Pulse Oximetry (%) 96 09/12/18 10:00 Constitutional: Yes: Well Nourished Eyes: Yes: Conjunctiva Clear HENT: Yes: WNL Neck: Yes: Trachea Midline Cardiovascular: Yes: WNL Respiratory: Yes: Regular. No: Tachypnea, Wheezes Gastrointestinal: Yes: WNL. No: Distention Musculoskeletal: No: Joint Swelling Edema: No Integumentary: Yes: Bruising Neurological: Yes: Alert, Oriented. No: Pre-Existing Deficit Labs: CBC, BMP 09/12/18 06:15 09/12/18 06:15 Assessment/Plan Seemingly unprovoked extensive RLE DVT. Will require at least 3 months of anticoagulation. No contraindication for use of a DOAC - can be started immediately. Ensure covered by patient's insurance. Unusual extent of clot in absence of risk factors. Low index of suspicion but would not be unreasonable to screen for local ?pelvic pathology - consider US pelvis (or CT) as outpatient. No role for 'hypercoagulable screen'. In light of unprovoked nature of clot, would have to consider extended anticoagulation beyond 3 months. Decision deferred to outpatient lockstitch collar setter.
[2018-09-12] MEDS ORDERED: DOCUSATE SODIUM 100 MG CAPSULE (FP) PO SCH (14:00)
[2018-09-12] MEDS ORDERED: POTASSIUM CHLORIDE TABS 20 MEQ TABLET.ER (FP) PO ONE (14:00)
--- NOTE | 2018-09-12 15:12 | DS ---
Physical Examination Vital Signs: Vital Signs Temperature 36.4 C 09/12/18 10:00 Pulse Rate 82 09/12/18 10:00 Respiratory Rate 20 09/12/18 10:00 Blood Pressure 130/84 09/12/18 10:00 O2 Sat by Pulse Oximetry (%) 96 09/12/18 10:00 Constitutional: Yes: Well Nourished, No Distress, Calm Cardiovascular: Yes: Regular Rate and Rhythm. No: Gallop, Murmur, Rub Respiratory: Yes: Regular, CTA Bilaterally. No: Rales, Rhonchi, Wheezes Gastrointestinal: Yes: Normal Bowel Sounds, Soft. No: Distention, Tenderness Extremities: Yes: WNL Edema: No Labs: CBC, BMP 09/12/18 06:15 09/12/18 06:15 Discharge Summary Reason For Visit: DVT OF FEMORAL VEIN Hospital Course: Mrs Shukla is a very pleasant 63 year old female who was admitted for DVT. She was started on lovenox and observed. She was seen by hematology and safe to place on NOAC. She is otherwise without complaint and stable for discharge home. She will be placed on eliquis 10mg bid for 7 days and then 5mg bid. She was instructed to follow up with her retail loan originator assistant. Her potassium was repleted prior to discharge. 31 minutes spent in preparation of this discharge Condition: Good - Instructions Diet, Activity, Other Instructions: resume previous diet and activity Referrals: Stu Gonsales MD [Primary Care Provider] - Disposition: HOME - Home Medications Comprehensive Discharge Medication List: Ambulatory Orders Bupropion HCl [Wellbutrin Sr] 150 mg PO DAILY 02/25/18 Lorazepam [Ativan] 1 mg PO TID 02/25/18 Rosuvastatin Calcium [Crestor] 10 mg PO HS 02/25/18 Cyclobenzaprine HCl [Flexeril -] 10 mg PO PRN 02/26/18 Sumatriptan Succinate [Imitrex -] 25 mg PO PRN PRN 02/26/18 Cyclosporine [Restasis] 1 drop OU BID 02/27/18 Docusate Sodium [Colace -] 100 mg PO TID capsule 03/03/18 Levothyroxine [Synthroid -] 50 mcg PO DAILY@0700 tablet 03/03/18 Polyethylene Glycol 3350 [Miralax 119 gm Btl -] 17 gm PO DAILY bottle 03/03/18 Sennosides [Senna -] 2 tab PO HS PRN tablet 03/03/18 Cholecalciferol (Vitamin D3) [Vitamin D3 -] 5,000 unit PO DAILY 09/11/18 Apixaban [Eliquis -] 5 mg PO BID #100 tablet 09/12/18 Teriparatide [Forteo] 2.4 ml SQ DAILY 09/12/18
[2018-09-12] MEDS ORDERED: ROSUVASTATIN CA 10 MG TABLET (FP) PO SCH (22:00)
[2018-09-13] MEDS ORDERED: LEVOTHYROXINE NA 50 MCG TABLET (FP) PO SCH (07:00)
[2018-09-13] MEDS ORDERED: POTASSIUM CHLORIDE TABS 20 MEQ TABLET.ER (FP) PO ONE (13:24)
== END 2018-09-12 14:16 | disposition home or self-care (01) ==
LOC: JER 16:39 → JERBED 21:43 → J7W 09-12 01:59
PROVIDERS: ADMIT Internal Medicine; ATTEND Internal Medicine
PROC: 3E0337Z Introduction of Electrolytic and Water Balance Substance into Peripheral Vein, Percutaneous Approach (ICD-10-PCS; principal; 2018-09-11)
PROC: 3E013GC Introduction of Other Therapeutic Substance into Subcutaneous Tissue, Percutaneous Approach (ICD-10-PCS; 2018-09-11)
DX: I82.411 Acute embolism and thrombosis of right femoral vein (principal); I82.431 Acute embolism and thrombosis of right popliteal vein; I82.491 Acute embolism and thrombosis of other specified deep vein of right lower extremity; R73.9 Hyperglycemia, unspecified; E03.9 Hypothyroidism, unspecified; E78.5 Hyperlipidemia, unspecified; M81.0 Age-related osteoporosis without current pathological fracture; F41.9 Anxiety disorder, unspecified; F32.9 Major depressive disorder, single episode, unspecified; Z79.01 Long term (current) use of anticoagulants; Z90.710 Acquired absence of both cervix and uterus; Z85.3 Personal history of malignant neoplasm of breast
CPT/HCPCS: 36415; 71275-TC; 80053; 82272; 83036; 83735; 84100; 85025; 85027; 85610; 85730; 99284-25; G0378

== ENCOUNTER 2018-12-18 15:19 | Emergency (ER) | payer BC ==
[2018-12-18 16:01] VITALS: BP 140/84; PULSE 108; TEMP 97.9; BMI 24.7
--- NOTE | 2018-12-18 18:19 | PDOC ---
History of Present Illness - General Chief Complaint: Pain, Acute Stated Complaint: R LEG PAIN Time Seen by Provider: 12/18/18 18:05 History Source: Patient - History of Present Illness Occurred: reports: this afternoon Lower Extremity Pain Location: right: knee Past History - Past Medical History Allergies/Adverse Reactions: Allergies Allergy/AdvReac Type Severity Reaction Status Date / Time fluconazole [From Diflucan] Allergy Verified 12/18/18 15:55 prochlorperazine Allergy Verified 12/18/18 15:55 [From Compazine] Home Medications: Ambulatory Orders Bupropion HCl [Wellbutrin Sr] 150 mg PO DAILY 02/25/18 Lorazepam [Ativan] 1 mg PO TID 02/25/18 Rosuvastatin Calcium [Crestor] 10 mg PO HS 02/25/18 Sumatriptan Succinate [Imitrex -] 25 mg PO PRN PRN 02/26/18 Cyclosporine [Restasis] 1 drop OU BID 02/27/18 Levothyroxine [Synthroid -] 50 mcg PO DAILY@0700 tablet 03/03/18 Cholecalciferol (Vitamin D3) [Vitamin D3 -] 5,000 unit PO DAILY 09/11/18 Apixaban [Eliquis -] 5 mg PO BID #100 tablet 09/12/18 Abaloparatide [Tymlos] 1.56 ml SQ ASDIR 12/18/18 Anemia: No Asthma: No Cancer: Yes (RIGHT BREAST LUMECTOMY) Cardiac Disorders: No CVA: No COPD: No CHF: No Dementia: No Diabetes: No GI Disorders: No Disorders: Yes (URINE RETENTION) HTN: No Hypercholesterolemia: Yes Liver Disease: No Seizures: No Thyroid Disease: Yes (HYPOTHYROIDISM) - Surgical History Abdominal Surgery: No Appendectomy: No Cardiac Surgery: No Cholecystectomy: No Lung Surgery: No Neurologic Surgery: No Orthopedic Surgery: Yes (Right shoulder) - Immunization History Immunization Up to Date: Yes - Suicide/Smoking/Psychosocial Hx Smoking History: Unknown if ever smoked Have you smoked in the past 12 months: No Hx Alcohol Use: No Drug/Substance Use Hx: No Substance Use Type: None Hx Substance Use Treatment: No Review of Systems - Review of Systems Constitutional: No: Chills, Fever Respiratory: No: Shortness of Breath, Hemoptysis Cardiac (ROS): No: Chest Pain, Palpitations *Physical Exam - Vital Signs Last Vital Signs Temp Pulse Resp BP Pulse Ox 97.9 F 108 H 18 140/84 98 12/18/18 16:00 12/18/18 16:00 12/18/18 16:00 12/18/18 16:00 12/18/18 16:00 - Physical Exam General Appearance: Yes: Appropriately Dressed. No: Apparent Distress HEENT: positive: Normal Voice Neck: positive: Supple Respiratory/Chest: positive: Lungs Clear, Normal Breath Sounds. negative: Respiratory Distress Cardiovascular: positive: Regular Rate, S1, S2 Extremity: negative: Tender, Swelling Integumentary: positive: Dry, Warm Neurologic: positive: Fully Oriented, Alert, Normal Mood/Affect ED Treatment Course - RADIOLOGY Radiology Studies Ordered: Category Date Time Status DUPLEX VASCUL US-1 LEG [US] Stat Ultrasound 12/18/18 18:13 Ordered Medical Decision Making - Medical Decision Making 12/18/18 18:15 63 yo F, history of breast cancer s/p lumpectomy and chemo in 2000, DVT to RLE, currrently on Eliquis, here with intermittent pain to posterior aspect of right knee that started today and is concern for recurrent DVT. No cough, CP, shortness of breath or palpitations. No redness to skin, fever or chills See exam R/o recurrent DVT On eliquis Tachy to 108 but no complaints of palpitations, CP or SOB -US pending 12/18/18 18:56 Signed out to SANCHEZ Liao pending US and reassessment *DC/Admit/Observation/Transfer - Referrals Referrals: Lucas Peng [Primary Care Provider] - - Patient Instructions - Post Discharge Activity
--- NOTE | 2018-12-18 19:13 | PDOC ---
*Physical Exam - Vital Signs Last Vital Signs Temp Pulse Resp BP Pulse Ox 97.9 F 108 H 18 140/84 98 12/18/18 16:00 12/18/18 16:00 12/18/18 16:00 12/18/18 16:00 12/18/18 16:00 - Physical Exam General Appearance: Yes: Appropriately Dressed Respiratory/Chest: positive: Lungs Clear, Normal Breath Sounds Cardiovascular: positive: Regular Rhythm, Regular Rate Extremity: positive: Normal Capillary Refill, Normal Inspection, Normal Range of Motion, Other (+ b/l pedal pulse. foot warm to touch. no calf edema) Integumentary: positive: Normal Color, Dry, Warm Neurologic: positive: Fully Oriented, Alert, Normal Mood/Affect Medical Decision Making - Medical Decision Making 12/18/18 19:46 repeat VS 130/97 ; Hr 94-98, 20. no DVt on US. patient to follow up with vascular and hematology *DC/Admit/Observation/Transfer Diagnosis at time of Disposition: Right leg pain - Discharge Dispostion Disposition: HOME - Referrals Referrals: Lucas Peng [Primary Care Provider] - Call tomorrow - Patient Instructions Printed Discharge Instructions: DI for Leg Pain Additional Instructions: take Tylenol every 6 hours as needed for pain apply ice to the area continue Eloquis as prescribed. follow up with Dr. Peng call tomorrow Additional Instructions: * Please call your personal physician to report your Emergency Department visit and to report your progress, if any. * If there is no improvement in symptoms in 2 days call your physician. * Return to the Emergency Department for any worsening symptoms. - Post Discharge Activity
== END 2018-12-18 20:39 | disposition home or self-care (01) ==
LOC: JER 15:19
DX: M79.604 Pain in right leg (principal); Z86.718 Personal history of other venous thrombosis and embolism; Z79.01 Long term (current) use of anticoagulants; Z85.3 Personal history of malignant neoplasm of breast
CPT/HCPCS: 93971-TC; 99281-25

== ENCOUNTER 2019-06-24 20:14 | Emergency (ER) | payer BC, OTHER ==
[2019-06-24 20:19] VITALS: BP 158/89; PULSE 115; BMI 23.3
--- NOTE | 2019-06-24 21:23 | PDOC ---
Attending Attestation - Resident Resident Name: Belem Emery - ED Attending Attestation I have performed the following: I have examined & evaluated the patient, The case was reviewed & discussed with the resident, I agree w/resident's findings & plan, Exceptions are as noted - HPI HPI: 06/24/19 21:22 This 63-year-old female had pulled out a nose hair and then she started to have nasal bleeding HPI significant for pituitary adenoma removal at the end of May with partial packing removed on June 12. She is not in any anticoagulation at this time. 06/24/19 21:23 - Physicial Exam PE: [id number] female presents with some mild nasal bleeding, there is some pink-tinged mucus coming from her nose Head no acute trauma Nares mild pink-tinged mucus in her nose CVS regular rate and rhythm S1-S2 Lungs are clear to auscultation bilaterally abdomen flat nontender Extremities no edema Skin warm and dry Neuro alert and oriented x3, ambulating with ease no gross focal neuro deficits - Medical Decision Making 06/24/19 21:27 repeat blood pressure was 116/67 We did discuss packing her nares with her ENT specialist Dr.Dell Lord If necessary he said we could pack with a Rhino [employer]ocket however at this time the patient wants to leave and go home, she is currently not bleeding 06/24/19 21:44 She will see her ENT tomorrow morning
--- NOTE | 2019-06-24 21:27 | PDOC ---
History of Present Illness - General Chief Complaint: Nasal Bleeding Stated Complaint: NOSEBLEED Time Seen by Provider: 06/24/19 20:42 History Source: Patient - History of Present Illness Initial Comments: 06/24/19 21:31 63 yo F PMH breast CA s/p lumpectomy over a decade ago, hypothyroidism, kyphoplasty T9-T10 (back surgery), HTN, HLD, DVT, recently diagnosed pituitary adenoma causing [place]'s disease, surgically removed 06/04/[address] Noland at [place], presenting with nasal bleeding. Patient states that it started this evening, was initially very brisk but has since improved significantly. Patient reports that she saw a long nose hair and cut it with scissors before the bleeding began, also has not been irrigating with saline spray. Part of the nasal packing was removed 2 weeks ago, with some remaining. Denies CP, SOB, [place]. Past History - Past Medical History Allergies/Adverse Reactions: Allergies Allergy/AdvReac Type Severity Reaction Status Date / Time fluconazole [From Diflucan] Allergy Verified 06/24/19 20:17 prochlorperazine Allergy Verified 06/24/19 20:17 [From Compazine] Home Medications: Ambulatory Orders Bupropion HCl [Wellbutrin Sr] 150 mg PO DAILY 02/25/18 Lorazepam [Ativan] 1 mg PO TID 02/25/18 Rosuvastatin Calcium [Crestor] 10 mg PO HS 02/25/18 Sumatriptan Succinate [Imitrex -] 25 mg PO PRN PRN 02/26/18 Cyclosporine [Restasis] 1 drop OU BID 02/27/18 Levothyroxine [Synthroid -] 50 mcg PO DAILY@0700 tablet 03/03/18 Cholecalciferol (Vitamin D3) [Vitamin D3 -] 5,000 unit PO DAILY 09/11/18 Apixaban [Eliquis -] 5 mg PO BID #100 tablet 09/12/18 Abaloparatide [Tymlos] 1.56 ml SQ ASDIR 12/18/18 Anemia: No Asthma: No Cancer: Yes (RIGHT BREAST LUMECTOMY) Cardiac Disorders: No CVA: No COPD: No CHF: No Dementia: No Diabetes: No GI Disorders: No Disorders: Yes (URINE RETENTION) HTN: No Hypercholesterolemia: Yes Liver Disease: No Seizures: No Thyroid Disease: Yes (HYPOTHYROIDISM) - Surgical History Abdominal Surgery: No Appendectomy: No Cardiac Surgery: No Cholecystectomy: No Lung Surgery: No Neurologic Surgery: No Orthopedic Surgery: Yes (Right shoulder) - Immunization History Immunization Up to Date: Yes - Psycho Social/Smoking Cessation Hx Smoking History: Never smoked Have you smoked in the past 12 months: No Hx Alcohol Use: No Drug/Substance Use Hx: No Substance Use Type: None Hx Substance Use Treatment: No Review of Systems - Review of Systems Constitutional: No: Chills, Diaphoresis, Fever HEENTM: No: Recent change in vision, Ear Pain, Nose Pain, Throat Pain Respiratory: No: Cough, Shortness of Breath Cardiac (ROS): No: Chest Pain, Chest Tightness ABD/GI: No: Constipated, Diarrhea, Nausea, Vomiting : No: Burning Musculoskeletal: Yes: Back Pain (chronic). No: Neck Pain Integumentary: No: Bruising Neurological: No: Headache, Numbness, Tingling, Weakness *Physical Exam - Vital Signs Last Vital Signs Temp Pulse Resp BP Pulse Ox 115 H 20 158/89 99 06/24/19 20:17 06/24/19 20:17 06/24/19 20:17 06/24/19 20:17 - Physical Exam Comments: 06/24/19 21:39 Gen: well-developed, well-nourished, NAD Neuro: AAOX4, CN II-XII intact, FTN intact, EOMI, PERRLA HEENT: atraumatic, normocephalic. Slow trickle of mixed mucus and blood from b/ l nostrils, L>R. No apparent active source of bleeding, no apparent trauma Neck: trachea midline, supple CV: regular rate, regular rhythm, no murmurs, rubs, or gallops Pulm: CTA b/l, no wheezing Abd: soft, non-distended, non-tender MSK: full ROM, intact pulses Extr: no edema, no deformities Skin: warm, dry Medical Decision Making - Medical Decision Making 06/24/19 21:13 Patient not on any AC since her procedure 06/04/2019. Nasal bleeding controlled with direct pressure. Will call Dr. Noland (ENT who performed surgery on 06/04/19). 06/24/19 21:[address] Signore, states that he will see her in the office tomorrow. Recommends not doing any irrigation tonight, states that she should take it easy and not do anything strenuous. Hold direct pressure for 20 minutes as needed for breakthrough bleeding. If there is a lot of bleeding that does not respond to direct pressure, come back to the emergency room. Discharge - Discharge Information Problems reviewed: Yes Clinical Impression/Diagnosis: Nasal bleeding Condition: Improved Disposition: HOME - Admission No - Follow up/Referral - Patient Discharge Instructions Patient Printed Discharge Instructions: DI for Nosebleed Additional Instructions: You were seen with nasal bleeding. This improved with direct pressure. We spoke with your ENT doctor Dr. Noland, who recommends not doing any irrigation tonight and avoiding strenuous activity. He will see you in the office tomorrow morning. Hold direct pressure for 20 minutes as needed for breakthrough bleeding. If there is a lot of bleeding that does not respond to direct pressure , come back to the emergency room. Follow up with your primary care doctor within 1 week. - Post Discharge Activity
== END 2019-06-24 21:46 | disposition home or self-care (01) ==
LOC: JER 20:14
DX: R04.0 Epistaxis (principal); I10 Essential (primary) hypertension; E78.5 Hyperlipidemia, unspecified; E03.9 Hypothyroidism, unspecified; Z86.718 Personal history of other venous thrombosis and embolism; E24.9 Cushing's syndrome, unspecified; Z86.018 Personal history of other benign neoplasm; Z98.890 Other specified postprocedural states; Z85.3 Personal history of malignant neoplasm of breast; Z88.1 Allergy status to other antibiotic agents; Z88.8 Allergy status to other drugs, medicaments and biological substances
CPT/HCPCS: 99282-25